=== PATIENT | female | born 1945 | race Caucasian/White ===

== ENCOUNTER 2024-01-24 15:07 | Inpatient (IN) | payer MEDICARE, BC, SELFPAY ==
[2024-01-24] VITALS (11 sets, daily range): BP systolic 86–97; BP diastolic 37–79; PULSE 71–98; RESP 17–24; TEMP 36.6–37.3; O2SAT 92–97; BMI 29.7; BMI 19.3
--- NOTE | 2024-01-24 15:27 | EKG12_ITS ---
Test Reason : SYNCOPE Blood Pressure : / mmHG Vent. Rate : 095 BPM Atrial Rate : 048 BPM P-R Int : 000 ms QRS Dur : 160 ms QT Int : 422 ms P-R-T Axes : 000 002 143 degrees QTc Int : 530 ms Sinus rhythm with PAC's Non-specific intra-ventricular conduction block Minimal voltage criteria for LVH, may be normal variant ( Hernandez product ) Inferior infarct , age undetermined Anterolateral infarct , age undetermined Abnormal ECG Confirmed by WAQAR PAGE, ANYA ([id number]), editor in chief newspaper SLOANE AGUILAR ([id number]) on 01/29/2024 6:48:53 AM Referred By: SAVAGE/SHARON Confirmed By:SHANIA ZAVALETA MD
--- NOTE | 2024-01-24 15:30 | EX.ED.DYSGE1 ---
HPI <RUDY Villalpando - Last Filed: 01/24/24 17:30> History of Present Illness Chief Complaint: Syncope Narrative Narrative: Patient is an 78-year-old female with history of Parkinson disease who is wheelchair-bound, hypertension diabetes currently on any blood thinners who presents to the emergency department after syncopal episode. Per the patient, she has not been feeling well for the last 2 days. She been having intermittent nausea and not eating normally. States today she had an accident where she had a BM on herself, her daughter was there cleaned her up put her on the toilet and then she had a syncopal episode. The daughter was concerned because the patient was not answering questions, was pale and diaphoretic. Patient dates she feels slightly nauseated however no significant pain. PFSH <RUDY Villalpando - Last Filed: 01/24/24 17:30> PFSH Allergy/AdvReac Type Severity Reaction Status Date / Time ampicillin Allergy Hives Verified 01/24/24 15:09 Penicillins Allergy Hives Verified 01/24/24 15:09 Social History Smoking Status: Never smoker ROS <RUDY Villalpando - Last Filed: 01/24/24 17:30> ROS ED ROS Narrative Constitutional: Negative for fever, chills, weight loss. Positive for worsening weakness Eyes: Negative for vision loss, vision change, double vision ENT: Negative for any sore throat, ear pain, congestion Cardiovascular: Negative for any chest pain, tightness, palpitations Respiratory: Negative for any cough, sputum production, hemoptysis, dyspnea, dyspnea on exertion, orthopnea Gastrointestinal: Negative for any abdominal pain, nausea, vomiting, constipation, blood in stool, blood in vomit. Positive for diarrhea : Negative for any urinary frequency, dysuria, retention, blood in urine Muscle skeletal: Negative for any neck pain, back pain Neurological: Negative for any headache. Positive syncope, feeling of dizziness Skin: Negative for any rashes, itching, abrasions, lacerations Psychiatric: Negative for any depression, anxiety, stress, suicidal ideation, homicidal ideation Hematologic: Negative for any excessive bruising, easy bleeding EXAM <RUDY Villalpando Last Filed: 01/24/24 17:30> Physical Exam Narrative Exam Narrative: Vital signs reviewed. Patient's vital signs slightly low at 91/48, patient is alert and oriented however slightly tired appearing. Patient does have a pale appearance HEET: Head normocephalic atraumatic, TMs clear bilaterally. Posterior pharynx is clear, dry mucous membranes. Nares clear bilaterally. Neck: Supple with no lymphadenopathy or tenderness. No signs of meningismus. Cardiac: Regular rate and rhythm no murmurs gallops or rubs, equal peripheral pulses bilaterally. Respiratory: Lungs clear to auscultation bilaterally. No chest tenderness. Abdomen: Soft, nontender, nondistended. No abdominal bruit or pulsatile masses. No hepatosplenomegaly Extremities: No peripheral edema, no signs of gross trauma or deformity. Active full range of motion of all extremities. Lower extremities do appear to be atrophied secondary to not walking. Neuro: Cranial nerves II through XII intact, no focal neurological deficits. Skin: Clean dry and intact with no rash, purpura, petechiae, vesicles or pustules. Backs/flank: No CVA tenderness, no midline spinal tenderness, no deformity. Psych: Normal mood and affect. No SI, HI or acute psychosis. Const Vital Signs: 01/24/24 15:01/24/24 15:01/24/24 15:15 Temperature 99.1 F 99.1 F Temperature Source Oral Oral Pulse Rate 87 Respiratory Rate 18 Respiratory Effort Normal Respiratory Pattern Normal Blood Pressure 91/48 L Blood Pressure Mean 62 Pulse Ox 92 Oxygen Delivery Method Nasal Cannula Oxygen Flow Rate (L/min) 2 01/24/24 15:29 01/24/24 17:08 Temperature Temperature Source Pulse Rate 98 Respiratory Rate Respiratory Effort Respiratory Pattern Blood Pressure 97/51 L Blood Pressure Mean 66 Pulse Ox Oxygen Delivery Method Nasal Cannula Oxygen Flow Rate (L/min) 2 Positive well nourished and well developed General Appearance ED: well developed <Dr. Jose Newell MD - Last Filed: 01/24/24 17:18> Physical Exam Const Vital Signs: 01/24/24 15:01/24/24 15:01/24/24 15:15 Temperature 99.1 F 99.1 F Temperature Source Oral Oral Pulse Rate 87 Respiratory Rate 18 Respiratory Effort Normal Respiratory Pattern Normal Blood Pressure 91/48 L Blood Pressure Mean 62 Pulse Ox 92 Oxygen Delivery Method Nasal Cannula Oxygen Flow Rate (L/min) 2 01/24/24 15:29 01/24/24 17:08 Temperature Temperature Source Pulse Rate 98 Respiratory Rate Respiratory Effort Respiratory Pattern Blood Pressure 97/51 L Blood Pressure Mean 66 Pulse Ox Oxygen Delivery Method Nasal Cannula Oxygen Flow Rate (L/min) 2 MDM <RUDY Villalpando - Last Filed: 01/24/24 17:30> MDM Lab Data Labs: Laboratory Results - last 24 hr 01/24/24 01/24/24 01/24/24 15:36 15:58 16:32 WBC 15.5 H RBC 3.51 L Hgb 12.1 Hct 35.5 L MCV 101.1 H MCH 34.5 H MCHC 34.1 RDW Std Deviation 47.4 H RDW Coeff of Monica 12.8 Plt Count 256 MPV 9.5 Immature Gran % (Auto) 0.500 Neut % (Auto) 95.1 H Lymph % (Auto) 1.5 L [place] % (Auto) 2.5 Eos % (Auto) 0.1 Baso % (Auto) 0.3 Absolute Neuts (auto) 14.7 H Absolute Lymphs (auto) 0.23 L Nucleated RBC % 0 Sodium 131 L Potassium 2.7 L* Chloride 96 L Carbon Dioxide 22.0 Anion Gap 13 BUN 39 H Creatinine 1.59 H Estim Creat Clear Calc 32.90 Est GFR (MDRD) Af Amer 40 L Est GFR (MDRD) Non-Af 33 L BUN/Creatinine Ratio 24.5 H Glucose 242 H Lactic Acid 2.2 H* Calcium 8.7 Troponin I High Sens 83 H Urine Color Yellow Urine Clarity Sl. Cloudy Urine pH 5.0 Ur Specific [place] 1.015 Urine Protein 30 H Urine Glucose (UA) Normal Urine Ketones 15 H Urine Occult Blood 25 H Urine Nitrite Negative Urine Bilirubin 3 H Urine Urobilinogen 4 H Ur Leukocyte Esterase 500 H Urine RBC 0 SEEN Urine WBC 25-50 SEEN Ur Squamous Epith Cells 0-5 SEEN Urine Bacteria 2+ Urine Mucus 0 SEEN Radiography Diagnostic Testing: Clinical Impression(s) from Imaging Studies Chest X-Ray 01/24/24 15:40 IMPRESSION: Fluid in the right fissure. Electronically Signed: Onel Brink MD at 16:20 EDT , EKG EKG shows undetermined rhythm, sinus rhythm,: Attestation: I personally reviewed and interpreted this EKG as follows: Interpretation: Sinus Rhythm Comments: Sinus rhythm, rate 95 bpm, QRS duration 160 ms, no acute ST elevation, no acute infarct noted. Treatment and Re-Evaluation :: Differential diagnosis includes however is not limited to: Vasovagal syncope, arrhythmia, cardiac involvement, dehydration, anemia, electrolyte abnormality, viral illness Patient appears to be in no obvious respiratory distress however patient's vital signs do show some hypotension with initial blood pressure 91/48. Patient is alert and orient x 4 however does appear tired. She is pale appearing. Patient received a full cardiac workup occluding chest x-ray, COVID flu/RSV. Patient be given 2 L of normal saline. EKG will be obtained and within normal limits. All radiologic examinations were read, reviewed by the emergency department attending. From these reads, a plan of care will be put in place. Patient will be reevaluated. Patient will be given a total of 3 L, we will follow the sepsis pathway. Patient's laboratory values showed 15.5 white blood count, so leukocytosis is present, hemoglobin is 12.1 which is stable. Patient's chemistries show some hyponatremia, potassium was 2.7, this was replaced orally and IV. EKG was not showing any signs of ectopy. Patient's creatinine is 1.59, do not have a baseline. Patient's lactic acid is cellulitic and 2.2 with a troponin of 80 3 repeat will be drawn. BNP will be ordered. Chest x-ray showed fluid in the right fissure. Patient's urinalysis was positive for infection with 2+ bacteria 25-50 white blood cells seen, 500 leukocyte esterase, this we sent for culture. Blood cultures x 2 will be ordered, patient will then be placed on IV ceftriaxone. Repeat vital signs show blood pressure of 97/51. Patient is in no obvious distress, patient's vital signs are stable. Spoke with hospitalist, secondary to the sepsis, the patient will be placed in the ICU as a full admission. <Dr. Jose Newell MD - Last Filed: 01/24/24 17:18> [facility] Narrative Medical decision making narrative: I have personally performed a face to face assessment of the patient and have reviewed the MARY Note. I performed a substantive portion of the visit including all aspects of the following. My li findings include: History is 78-year-old female was on the toilet at home had a near syncopal episode. Presents hypotensive. Says she does not felt great the last several days. Decreased oral intake. Denies any headache, chest pain or abdominal pain. Nausea but no vomiting. No diarrhea. Exam is [78-year-old female family in the room. Initial blood pressure 91/48. Temperature 99.1. Pulse ox 92% on 2 L. H EENT exam pupils round reactive light. Dry mucous membranes. Normal speech. No trauma. No droop. Neck nontender. Lungs clear. Heart regular rhythm rate about 85 no murmur. Chest wall and ribs are nontender. Abdomen soft nontender. Moving all 4 extremities. Nontender no deformity. Normal strength. She is awake and alert. Answer questions following commands.] Medical Decision Making [78-year-old near syncopal episode at home with hypotension here. Receiving IV fluids. Zofran for nausea. Appropriate workup. Rule out infectious etiology versus other. She will be admitted to the hospital.] Other additions or changes: [None] History & Record Review Discussion w/independent historian: Patient and Family Additional record(s) reviewed:: No prior records Lab Data Attestation: I reviewed the patient's lab results. Lab results narrative: CBC shows no elevated white count of 15.5. H&H 12.1 and 35. Platelets 256. Electrolytes show sodium 131. Potassium 2.7. Gap 13. BUN and creatinine are 39 and 1.59. We have no old labs available for comparison. Glucose 242. Initial troponins elevated 83. Urinalysis shows white count of 25-50. 2+ bacteria. No nitrites. Culture resent. She will be treated for UTI. Labs: Laboratory Results - last 24 hr 01/24/24 01/24/24 01/24/24 15:36 15:58 16:32 WBC 15.5 H RBC 3.51 L Hgb 12.1 Hct 35.5 L MCV 101.1 H MCH 34.5 H MCHC 34.1 RDW Std Deviation 47.4 H RDW Coeff of Monica 12.8 Plt Count 256 MPV 9.5 Immature Gran % (Auto) 0.500 Neut % (Auto) 95.1 H Lymph % (Auto) 1.5 L [place] % (Auto) 2.5 Eos % (Auto) 0.1 Baso % (Auto) 0.3 Absolute Neuts (auto) 14.7 H Absolute Lymphs (auto) 0.23 L Nucleated RBC % 0 Sodium 131 L Potassium 2.7 L* Chloride 96 L Carbon Dioxide 22.0 Anion Gap 13 BUN 39 H Creatinine 1.59 H Estim Creat Clear Calc 32.90 Est GFR (MDRD) Af Amer 40 L Est GFR (MDRD) Non-Af 33 L BUN/Creatinine Ratio 24.5 H Glucose 242 H Lactic Acid 2.2 H* Calcium 8.7 Troponin I High Sens 83 H Urine Color Yellow Urine Clarity Sl. Cloudy Urine pH 5.0 Ur Specific [place] 1.015 Urine Protein 30 H Urine Glucose (UA) Normal Urine Ketones 15 H Urine Occult Blood 25 H Urine Nitrite Negative Urine Bilirubin 3 H Urine Urobilinogen 4 H Ur Leukocyte Esterase 500 H Urine RBC 0 SEEN Urine WBC 25-50 SEEN Ur Squamous Epith Cells 0-5 SEEN Urine Bacteria 2+ Urine Mucus 0 SEEN Radiography Chest X-Ray - ED: 1 View, Read by ED Physician, Read by Radiologist, Normal, Heart, Mediastinum, Bony Structures, No Acute Disease and - (Fluid in the right fissure.) Diagnostic Testing: Clinical Impression(s) from Imaging Studies Chest X-Ray 01/24/24 15:40 IMPRESSION: Fluid in the right fissure. Electronically Signed: Onel Brink MD at 16:20 EDT Reading Location ID and State: [facility] / [place] , Service support , Chest x-ray, portable, single view shows normal cardiac silhouette. Left-sided brain stimulator. There is fluid in the right fissure but no obvious pneumonia. No effusions. No CHF. Interpreted both by myself and the radiologist. Rhythm Strip Rhythm Strip: Sinus Rhythm Rate: 95 Ectopy: None EKG Initial EKG: Attestation: I personally reviewed and interpreted this EKG as follows: Interpretation: Sinus Rhythm and No Acute Injury Pattern Comments: Normal sinus rhythm rate 95 no acute signs of LA or ischemia. <Dr. Jose Newell MD - Last Filed: 01/24/24 17:18> Critical Care Time Critical Care Time: Yes Critical care time (excluding procedures): 30-74 minutes, Including time spent:, Discussing w/Patient &/or Family/Twill Cutter, Discussing w/Consultants, Arranging Admission or Transfer, Performing Direct Patient Care at Bedside and - (35 minutes) Discharge Plan Dx/Rx/DC Orders Clinical Impression: Near syncope, Acute hypotension, Acute UTI, Sepsis, Acute renal insufficiency, Hypoxia, Acute dehydration, Acute hyperkalemia Disposition Disposition: Acute Care [facility]
--- NOTE | 2024-01-24 15:31 | ED.RN ---
NO OLD EKGS
[2024-01-24] MEDS: 0.9% Normal Saline (1000mL) 1,000 ML 999 ML IV ×3 (15:33→17:45)
--- NOTE | 2024-01-24 15:40 | RAD_ITS ---
STUDY: XR Chest 1 View 01/24/2024 3:38 PM REASON FOR EXAM: Female, 78 years old. chest pain COMPARISON: None TECHNIQUE: XR Chest 1 View FINDINGS: Fluid in the right fissure. There is a left sided batterypack. Normal heart size. Normal mediastinum. Normal mirella. Prominent appearing increased interstitial lung markings. Normal visualized pulmonary arteries. There is atherosclerotic calcification of the aortic arch with tortuosity. There are diffuse degenerative changes of the visualized thoracic spine. There is degenerative osteoarthritis of the bilateral shoulders. There are no acute findings of the upper abdomen. RAD/Chest 1 View (Portable) IMPRESSION: Fluid in the right fissure. Electronically Signed: Onel Brink MD at 16:20 EDT ,
[2024-01-24 15:47] LABS: Absolute Lymphocyte Count 0.23 X10^3/uL (0.83-4.51); Absolute Neutrophil Count 14.7 X10^3/uL (2.0-7.7); Basophil# 0.05 X10^3/uL; Basophil% 0.3 % (0-1); Eosinophil# 0.01 X10^3/uL; Eosinophils% 0.1 % (0-5); Hematocrit 35.5 % (37-47); Hemoglobin 12.1 g/dL (12.0-15.0); Lymphocyte # 0.23 X10^3/ul (0.83-4.51); Lymphocyte % 1.5 % (19-41); Mean Corp Hgb Conc 34.1 g/dL (32-36); Mean Corpuscular Hgb 34.5 pg (27.0-32.0); Mean Corpuscular Volume 101.1 fL (81-99); Mean Platelet Vol. 9.5 fl (6.2-12.0); Monocyte# 0.39 X10^3/uL; Monocyte% 2.5 % (0-10); NRBC Flagged by Analyzer 0 % (0-5); Neutrophil # 14.73 X10^3/uL (2.7-7.7); Neutrophil % 95.1 % (47-70); POSITIVE DIFFERENTIAL YES; Platelet Count 256 K/mm3 (150-450); RBC Distribution Width CV 12.8 % (11.6-14.6); RBC Distribution Width SD 47.4 fl (35.1-43.9); Red Blood Count 3.51 M/mm3 (4.2-5.4); White Blood Count 15.5 K/mm3 (4.4-11.0)
[2024-01-24 16:07] LABS: Mucous, Urine 0 SEEN /hpf (<or=2+); Red Blood Cells-Urine 0 SEEN /hpf (0-5)
[2024-01-24 16:07] LABS: Anion Gap 13 (5-15); BUN 39 mg/dL (7-18); BUN/Creat Ratio 24.5 RATIO (10-20); Calcium,Total 8.7 mg/dL (8.5-10.1); Chloride 96 mmol/L (98-107); Creatinine, Serum 1.59 mg/dL (0.55-1.02); EST Glomerular Filtration Rate 33 mL/min (>60); Est Glom Filt Rate - Afr Amer 40 mL/min (>60); Glucose 242 mg/dL (74-106); Potassium 2.7 mmol/L (3.5-5.1); Sodium Level 131 mmol/L (136-145); Troponin-I HS (w/2H Reflex) 83 pg/mL (3.0-54.0)
[2024-01-24] MEDS: Potassium Chloride Oral Tablet 20 MEQ 40 MEQ PO (16:18)
[2024-01-24 16:29] LABS: Color, Urine Yellow (Yellow); Glucose, Dipstick Normal (Normal); Ketone-Dipstick 15 mg/dl (Negative); Leukocyte Esterase-Dipstick 500 /ul (Negative); Nitrite-Dipstick Negative (Negative); Occult Blood-Urine 25 /ul (Negative); Protein-Dipstick 30 mg/dl (Negative); Specific Gravity, Urine 1.015 (1.002-1.030); Urine Bilirubin Dipstick 3 mg/dL (Negative); Urine Clarity Sl. Cloudy (Clear); Urine Urobilinogen 4 mg/dl (Normal)
[2024-01-24] MEDS: Potassium Chloride 10mEq/100mL 10 MEQ/100 ML IV.SOLN. 100 MEQ IV BOLUS (16:43)
[2024-01-24 16:58] LABS: Bacteria 2+ /hpf (None Seen); Squamous Epithelial Cells - UA 0-5 SEEN /hpf (5-10); White Blood Cells 25-50 SEEN /hpf (0-5)
[2024-01-24 17:11] LABS: Lactic Acid 2.2 mmol/L (0.4-1.9)
--- NOTE | 2024-01-24 17:26 | CT_ITS ---
STUDY: CT Abdomen And Pelvis W/O Contrast Injection 01/24/2024 7:07 PM REASON FOR EXAM: Female, 78 years old. Abdominal pain urosepsis Individualized dose optimization techniques were used for this CT. COMPARISON: None. TECHNIQUE: CT Abdomen And Pelvis W/O Contrast Injection FINDINGS: There are atherosclerotic calcifications of visualized coronary arteries. Lower lobe atelectasis. There is decreased attenuation of the liver consistent with steatosis. Normal gallbladder and extrahepatic biliary system. Normal spleen. Normal pancreas. Normal bilateral adrenal glands. No acute findings of the right kidney. No acute findings of the left kidney. Normal visualized stomach. Normal small intestine. Normal colon. The appendix is visualized and appears normal. There are calcifications of the abdominal aorta. This is consistent for atherosclerotic disease. There is NO abdominal aortic aneurysm. Vascular workup can be obtained based on clinical correlation. Normal inferior vena cava. Subcentimeter mesenteric lymph nodes. Normal urinary bladder. The uterus is lobulated in contour. There are multiple partially calcified masses in the uterus. This is consistent for a fibroid/ myomatous uterus. There is an umbilical hernia containing fat. There are diffuse degenerative changes of the visualized lumbar spine. There is bilateral neural foraminal stenosis at L4-5 and L5-S1. CT/Abdomen/Pelvis without Cont IMPRESSION: (NOT LISTED IN ORDER OF SIGNIFICANCE) Fatty liver. Fibroid uterus. Other findings as above. Electronically Signed: Onel Brink MD at 19:10 EDT ,
[2024-01-24] MEDS: Ceftriaxone 1 GM/50 ML BAG IV (17:30)
--- NOTE | 2024-01-24 17:31 | PCM.HP.STD ---
HPI - General General Date of Admission: 01/24/24 Date of Service: 01/24/24 Chief Complaint: syncope HPI Narrative MARIELA BIRD, is a 78 F who presented to the emergency department at [facility] on 01/24/2024 after suffering from a syncopal episode. She has a history of Parkinson's disease and is wheelchair-bound at baseline due to this. She has a history of deep brain stimulator for this. Evidently, she had not been feeling well for the last 2 days with intermittent nausea and decreased p.o. intake compared to her normal baseline. She evidently had an accident today at which time she had a bowel movement on herself and the daughter was there helping her get cleaned up and placing her on the toilet at which time she had a syncopal episode. The daughter was concerned because the patient was not answering questions, appeared pale and diaphoretic. Given this they brought her to the emergency department. She has never been here before we have no data to compare for baseline lab. Upon presentation she was alert and oriented all of but sleepy initially however this improved during her stay in the emergency department and she was feeling slightly nauseated but denied pain. Vital signs on presentation showed a temperature of 99.1, heart rate was 87, blood pressure was 91/48, respiratory rate was 18 and oxygen saturation was 92% on 2 L nasal cannula. The patient takes antihypertensives at baseline and is not oxygen dependent. CBC showed a significant leukocytosis with a white count of 15.5 and a left shift with a 95.1% neutrophilia. Chemistry panel revealed hyponatremia with a sodium of 131, potassium of 2.7. BUN was 39 with a serum creatinine of 1.59 (baseline unknown). Lactic acid was 2.2. Her initial troponin was 83, CK was 125 and a BNP was mildly elevated at 138.8. Her UA was suggestive of infection as she had occult blood, leuk esterase, white cells and 2+ bacteria. Chest x-ray showed mild amount of fluid in the right fissure but was otherwise unremarkable. EKG shows intermittent ectopy with prolonged QTc but no ST-T wave changes concerning for acute ischemia. In the emergency department she was treated with aggressive IV fluids at 30 cc/kg of body weight and started on antibiotics. The patient denied frequent urinary tract infections previously and states she think she is only had a read 2 in her lifetime. [facility] Medical History (Updated 01/24/24 @ 18:[address] Edith Cornelius DO) Inability to walk Wheelchair dependent Depression Diabetes mellitus, type 2 HTN (hypertension) Parkinson disease Home Medications ?Medication ?Instructions ?Recorded ?Last Taken ?Type carbidopa 25 mg-levodopa 100 mg See Rx Instructions PO .COMPLEX 01/24/24 01/24/24 History tablet SHAKINESS carbidopa ER 25 mg-levodopa 100 mg 1 tab PO TID SHAKINESS 01/24/24 01/24/24 History tablet,extended release carvedilol 6.25 mg tablet 6.25 mg PO BID BLOOD PRESSURE 01/24/24 01/24/24 History glipizide 5 mg tablet 2.5 mg PO DAILY BLOOD SUGAR 01/24/24 01/24/24 History hydrochlorothiazide 25 mg tablet 25 mg PO DAILY FLUID RETENTION 01/24/24 01/24/24 History metformin 500 mg tablet,extended 1,000 mg PO DAILY BLOOD SUGAR 01/24/24 01/24/24 History release 24 hr mirtazapine 15 mg tablet 15 mg PO QHS MOOD 01/24/24 01/23/24 History sertraline 100 mg tablet 100 mg PO DAILY MOOD 01/24/24 01/24/24 History Allergy/AdvReac Type Severity Reaction Status Date / Time ampicillin Allergy Hives Verified 01/24/24 15:09 Penicillins Allergy Hives Verified 01/24/24 15:09 Family History (Updated 01/24/24 @ 19:[address] Edith Cornelius DO) Other Diabetes Hypertension Surgical History (Updated 01/24/24 @ 18:[address] Edtih Cornelius DO) H/O shoulder surgery S/P deep brain stimulator placement Social History (Updated 01/24/24 @ 19:[address] Edith Cornelius DO) Smoking Status: Never smoker alcohol intake: never substance use type: does not use ROS Constitutional Constitutional: Reports fatigue, malaise and weakness; Denies anorexia, change in weight, chills, fever(s), night sweats or other Eyes Eyes: Denies blurry vision, change in eye color, change in vision, discharge from eye(s), double vision, erythema, eye pain, loss of vision or other ENT HEENT: Denies abnormal hearing, dysphagia, ear pain, epistaxis, headache(s), hearing loss, nasal congestion, nasal discharge, post nasal drip, sinus pressure, sore throat or other Cardiovascular Cardiovascular: Denies chest pain, claudication, dyspnea on exertion, edema, lightheadedness, orthopnea, palpitations, paroxysmal nocturnal dyspnea, rapid heart rate, syncope or other Respiratory/Chest Respiratory/Chest: Reports dyspnea and shortness of breath at rest; Denies cough, excessive phlegm production, hemoptysis, productive cough, wheezing or other Gastrointestinal Gastrointestinal: Reports nausea; Denies abdominal pain, coffee ground emesis, constipation, diarrhea, dyspepsia, hematemesis, hematochezia, loose stools, melena, vomiting or other Genitourinary Genitourinary: Reports urinary frequency and urinary incontinence; Denies burning urination, difficulty urinating, dysuria, hematuria, nocturia, urinary hesitancy, urinary urgency or other Musculoskeletal Musculoskeletal: Reports other Neurologic Neurologic: Reports tremor(s) and other Details: Inability ambulate secondary to Parkinson's disease Psychiatric Psychiatric: Reports depression; Denies anxiety, homicidal ideation, suicidal ideation or other Endocrine Endocrinology: Denies change in body appearance, cold intolerance, excessive sweating, heat intolerance, polydipsia, polyuria or other Hematologic/Lymphatic Hematologic/Lymphatic: Denies anemia, easy bleeding, easy bruising, lymphadenopathy or other Allergic/Immunologic Allergic/Immunologic: Denies rhinitis, hives, eczemia, asthma or other Vital Signs Vital Signs Vital Signs: 01/24/24 15:09 01/24/24 15:09 01/24/24 15:15 Temperature 99.1 F 99.1 F Temperature Source Oral Oral Pulse Rate 87 Respiratory Rate 18 Respiratory Effort Normal Respiratory Pattern Normal Blood Pressure 91/48 L Blood Pressure Mean 62 Pulse Ox 92 Oxygen Delivery Method Nasal Cannula Oxygen Flow Rate (L/min) 2 01/24/24 15:29 01/24/24 17:08 Temperature Temperature Source Pulse Rate 98 Respiratory Rate Respiratory Effort Respiratory Pattern Blood Pressure 97/51 L Blood Pressure Mean 66 Pulse Ox Oxygen Delivery Method Nasal Cannula Oxygen Flow Rate (L/min) 2 Weight Weight: 88.8 kg Body Mass Index (BMI) 29.7 Physical Exam Const oriented x3, no apparent distress and well nourished; Negative for average body habitus or healthy appearing Constitutional Narrative: Elderly, white female, sitting up in bed, covered in multiple blankets, son-in-law at bedside and daughter comes in during my evaluation, appears ill but currently comfortable General Appearance: cooperative HEENT normocephalic, head/scalp atraumatic, hearing grossly normal bilaterally and moist oral mucous membranes HEENT Narrative: Mallampati 2, no thrush Eyes PERRL, EOMs intact bilaterally and conjunctivae normal Eyes Narrative: No scleral icterus Neck no lymphadenopathy and supple Neck Narrative: Trachea midline, no thyroid enlargement Resp normal respiratory effort, no retractions, no use of accessory muscles and clear to auscultation bilaterally Resp Narrative: Decreased at bases bilaterally but no adventitious sounds noted Auscultation: Negative for rales, rhonchi or wheezes Cardio regular rate, regular rhythm, S1 normal heart sound, S2 normal heart sound, no murmurs, no rub, no gallops and no clicks Cardio Narrative: Intermittent ectopy GI normal to inspection, nondistended, normoactive bowel sounds, soft to palpation and non-tender Extremity Extremity Narrative: Lower extremity flaccidity noted from Parkinson's and decreased use, chronic edema related to disuse but no cyanosis or clubbing Neuro oriented x3, CN's II-XII intact bilaterally, moves all extremities and no focal motor deficits Speech: speech normal Psych affect normal Psych Narrative: Very pleasant, interacts appropriately Results Lab / Micro Data 01/24/24 15:36 01/24/24 15:36 Labs: Laboratory Results - last 24 hr 01/24/24 15:36: WBC 15.5 H, RBC 3.51 L, Hgb 12.1, Hct 35.5 L, MCV 101.1 H, MCH 34.5 H, MCHC 34.1, RDW Std Deviation 47.4 H, RDW Coeff of Monica 12.8, Plt Count 256, MPV 9.5, Immature Gran % (Auto) 0.500, Neut % (Auto) 95.1 H, Lymph % (Auto) 1.5 L, [place] % (Auto) 2.5, Eos % (Auto) 0.1, Baso % (Auto) 0.3, Absolute Neuts (auto) 14.7 H, Absolute Lymphs (auto) 0.23 L, Nucleated RBC % 0, Sodium 131 L, Potassium 2.7 L*, Chloride 96 L, Carbon Dioxide 22.0, Anion Gap 13, BUN 39 H, Creatinine 1.59 H, Estim Creat Clear Calc 32.90, Est GFR (MDRD) Af Amer 40 L, Est GFR (MDRD) Non-Af 33 L, BUN/Creatinine Ratio 24.5 H, Glucose 242 H, Calcium 8.7, Troponin I High Sens 83 H 01/24/24 15:58: Urine Color Yellow, Urine Clarity Sl. Cloudy, Urine pH 5.0, Ur Specific [place] 1.015, Urine Protein 30 H, Urine Glucose (UA) Normal, Urine Ketones 15 H, Urine Occult Blood 25 H, Urine Nitrite Negative, Urine Bilirubin 3 H, Urine Urobilinogen 4 H, Ur Leukocyte Esterase 500 H, Urine RBC 0 SEEN, Urine WBC 25-50 SEEN, Ur Squamous Epith Cells 0-5 SEEN, Urine Bacteria 2+, Urine Mucus 0 SEEN 01/24/24 16:32: Lactic Acid 2.2 H* Rhythm Strip Rhythm Strip: Sinus Rhythm Rate: 95 Ectopy: None Imaging Radiology Impression Chest X-Ray 01/24/24 15:40 IMPRESSION: Fluid in the right fissure. Electronically Signed: Onel Brink MD at 16:20 EDT Reading Location ID and State: [facility] / [place] , Service support , Assessment & Plan Assessment/Plan (1) Hypoxia: (2) Elevated serum creatinine: (3) Sepsis: (4) Abnormal urinalysis: (5) Near syncope: (6) Acute hypotension: (7) Hypokalemia: (8) Leukocytosis: (9) Hyponatremia: (10) Lactic acidosis: (11) Elevated troponin: PLAN: Plan Sepsis secondary to suspected urinary tract source -Met criteria for sep 1 and sep 3 guidelines -UA is suggestive of infection -Blood and urine cultures are pending -COVID-19 is negative and chest x-ray does not suggest pneumonia -Patient without history of recurrent UTIs so we will utilize ceftriaxone -Patient did receive 30 cc/kg body weight -Awaiting response as this is still in progress to see if patient will need pressors -Imaging pending to assess for obstruction or stone that will require surgery Lactic acidosis -Secondary to the above -Repeat per protocol Elevated troponin -Cycle cardiac enzymes -Highly suspect subendocardial ischemia related to sepsis -Check echocardiogram -EKG without any signs of acute infarction and patient chest pain-free Hypokalemia -Potassium is 2.7 -Was given 40 mill equivalents emergency department will give another 60 mill equivalents on the floor and repeat in a.m. -Check a.m. magnesium and phosphorus level Elevated serum creatinine -Baseline is unknown -Serum creatinine on presentation was 1.59 -Highly suspect patient has CATIE on presentation but unable to say for sure without baseline being known -Avoid nephrotoxin and hold home antihypertensives due to hypotension -Avoid nephrotoxins as able -Repeat lab in a.m. Hyponatremia -IVF--> suspect hypovolemia -mild -IV fluids were given to treat sepsis -Repeat lab in a.m. -Hold HCTZ Hypoxia -Currently requiring 2 L nasal cannula -May be related to atelectasis -Incentive spirometry -COVID/flu/RSV is negative -Monitor clinically especially with large volume resuscitation Parkinson's disease -Patient with deep brain stimulator -Currently wheelchair-bound because of her movement disorder -Continue home Sinemet DM-2 -Hold home glipizide and metformin -check hemoglobin A1c -SSI and Accu-Cheks as ordered -Carb controlled diet Essential hypertension -Hold home carvedilol -Hold home hydrochlorothiazide Depression -Continue home mirtazapine -Continue home sertraline DVT prophylaxis -Subcu heparin 3 times daily CODE STATUS -Full code as verified prior to admission with family at bedside Critical care time greater than 36 minutes without procedures Sepsis Attestation Sepsis Alert: Yes Sepsis Attestation: Agree w/Sepsis Date exam was performed: 01/24/24 Time exam was performed: 05:25 Possible Source of Sepsis: Genitourinary Sepsis Organ Dysfunction Criteria Present: SBP < 90 mmHg or MAP < 65 mmHg and Lactic Acid > 2 mmol/L Fluid Resuscitation Fluid resuscitation indicated?: Yes Fluid Resuscitation ordered: 30 ml/kg fluid bolus ordered Amount of fluid ordered: 3,000 Sepsis Note Date exam was performed: 01/24/24 Time exam was performed: 19:08 Response to fluids: Fluid responsive hypotension Charges/Coding Procedures Hospitalists Procedures: 48728 Critical Care 1st Hr
--- NOTE | 2024-01-24 17:34 | ECHOD_ITS ---
Reason For Study: ELEVATED TROP Procedure This was a 2D Doppler, Color Flow transthoracic echocardiogram. Exam performed portable in ICU/CCU. Left Ventricle Normal LV size. The estimated ejection fraction is 65 %. Unable to assess diastolic dysfunction. No regional wall motion abnormalities noted. Right Ventricle Normal RV size. Normal systolic function. Atria The left atrium is mildly enlarged. Normal right atrium. No doppler evidence for ASD. Mitral Valve There is no mitral valve stenosis. No mitral valve insufficiency. Tricuspid Valve There is no tricuspid stenosis. Trivial tricuspid valve insufficiency. Pulmonary artery systolic pressure is 40-45 mmHg. Aortic Valve Aortic sclerosis, no stenosis. There is no aortic stenosis. No aortic valve insufficiency. Pulmonic Valve There is no pulmonic valvular stenosis. No pulmonic valve insufficiency. Great Vessels Normal aortic root. Pericardium/Pleural No pericardial effusion. MMode/2D Measurements & Calculations LVIDd: 4.6 cm IVSd: 0.79 cm LAV(MOD-sp4): 69.0 ml LVIDs: 2.8 cm LVPWd: 0.99 cm FS: 38.5 % LVAd ap4: 21.7 cm2 SV(MOD-sp4): 33.1 ml SV(sp4-el): 33.2 ml LVLd ap4: 7.5 cm EDV(MOD-sp4): 53.2 ml EDV(sp4-el): 53.1 ml LVAs ap4: 12.2 cm2 LVLs ap4: 6.4 cm ESV(MOD-sp4): 20.0 ml ESV(sp4-el): 19.9 ml EF(MOD-sp4): 62.3 % EF(sp4-el): 62.6 % LA A4 area: 23.8 cm2 LA dimension(2D): 4.3 cm RA A4 area: 10.7 cm2 Doppler Measurements & Calculations MV E max venkat: 74.9 cm/sec Ao V2 max: 139.0 cm/sec LV V1 max: 110.6 cm/sec Ao max P.0 mmHg LV V1 max P.9 mmHg Ao V2 mean: 100.5 cm/sec LV V1 mean P.1 mmHg Ao mean P.6 mmHg LV V1 mean: 82.0 cm/sec Ao V2 VTI: 25.6 cm LV V1 VTI: 17.7 cm AV (velocity ratio): 0.69 PA V2 max: 80.4 cm/sec TR max venkat: 307.8 cm/sec PA V2 mean: 49.2 cm/sec TR max P.9 mmHg ECHO/Echo Complete Interpretation Summary The estimated ejection fraction is 65 %. Unable to assess diastolic dysfunction. The left atrium is mildly enlarged. Ordering Physician: Edith Cornelius Referring Physician: ANNALEE PERDOMO Performed By: Emelina Martin RCS
[2024-01-24 17:42] LABS: Reflex Troponin-HS? (from REC) Y
[2024-01-24 18:02] LABS: CPK Total, Creatine Kinase 125 U/L (26-192)
[2024-01-24 18:06] LABS: BNP,B-Type NATRIURETIC PEPTIDE 138.8 pg/mL (0-100)
[2024-01-24 18:29] LABS: Troponin-I HS 86 pg/mL (3.0-54.0)
[2024-01-24 20:34] LABS: Reflex Lactate? Y
[2024-01-24 20:36] LABS: Troponin-I HS 75 pg/mL (3.0-54.0)
[2024-01-24] MEDS: Norepinephrine 8 MG in 0.9% Normal Saline (250mL Bag) 242 ML 9.4 MG CONT INF (20:49)
[2024-01-24] MEDS: CARBIDOPA/LEVODOPA 1 EACH TABLET.ER PO (20:52)
[2024-01-24] MEDS: Heparin Injection (Vial) 5,000 UNIT/ML VIAL 5000 UNIT SC (20:53)
[2024-01-24] MEDS: Acetaminophen 500 MG Tablet 1000 MG PO (20:54)
[2024-01-24] MEDS: Carbidopa/Levodopa 25/100 Tablet PO (20:54)
[2024-01-24] MEDS: Mirtazapine 15 MG Tablet PO (21:11)
[2024-01-24 21:48] LABS: M R Staph aureus DNA By PCR Negative (Negative); Specimen Processing Control PASS
[2024-01-24 21:49] LABS: Probe Check PASS
[2024-01-24] MEDS: Potassium Chloride Oral Tablet 20 MEQ 60 MEQ PO (21:54)
[2024-01-24 22:29] LABS: Lactic Acid 1.4 mmol/L (0.4-1.9)
[2024-01-25] VITALS (34 sets, daily range): BP systolic 88–154; BP diastolic 35–86; PULSE 69–118; RESP 14–31; TEMP 36.6–36.8; O2SAT 89–96; BMI 29.5
[2024-01-25 04:06] LABS: Absolute Lymphocyte Count 0.49 X10^3/uL (0.83-4.51); Absolute Neutrophil Count 12.3 X10^3/uL (2.0-7.7); Basophil# 0.03 X10^3/uL; Basophil% 0.2 % (0-1); Eosinophil# 0.03 X10^3/uL; Eosinophils% 0.2 % (0-5); Hematocrit 33.9 % (37-47); Hemoglobin 11.3 g/dL (12.0-15.0); Lymphocyte # 0.49 X10^3/ul (0.83-4.51); Lymphocyte % 3.7 % (19-41); Mean Corp Hgb Conc 33.3 g/dL (32-36); Mean Corpuscular Hgb 34.2 pg (27.0-32.0); Mean Corpuscular Volume 102.7 fL (81-99); Mean Platelet Vol. 9.7 fl (6.2-12.0); Monocyte# 0.52 X10^3/uL; Monocyte% 3.9 % (0-10); NRBC Flagged by Analyzer 0 % (0-5); Neutrophil # 12.25 X10^3/uL (2.7-7.7); Neutrophil % 91.5 % (47-70); POSITIVE DIFFERENTIAL YES; Platelet Count 250 K/mm3 (150-450); RBC Distribution Width CV 12.8 % (11.6-14.6); White Blood Count 13.4 K/mm3 (4.4-11.0)
[2024-01-25 04:17] LABS: Bedside Glucose 161 mg/dL (74-106)
[2024-01-25 04:35] LABS: ALB/GLOB Ratio 0.7 RATIO (0.9-2.4); AST(SGOT) 42 U/L (15-37); Alanine Aminotransfer ALT/SGPT 10 U/L (13-56); Albumin, Serum 2.6 g/dL (3.2-5.0); Alkaline Phosphatase 150 U/L (45-117); Anion Gap 6 (5-15); BUN 28 mg/dL (7-18); BUN/Creat Ratio 38.6 RATIO (10-20); Calcium,Total 8.3 mg/dL (8.5-10.1); Chloride 108 mmol/L (98-107); Creatinine, Serum 0.72 mg/dL (0.55-1.02); EST Glomerular Filtration Rate 82 mL/min (>60); Est Glom Filt Rate - Afr Amer 99 mL/min (>60); Estimated Creatinine Clearance 50.91 ml/min; Globulin 3.8 g/dL (2.2-4.2); Glucose 168 mg/dL (74-106); Magnesium 1.4 mg/dL (1.6-2.6); Phosphorus 2.5 mg/dL (2.5-4.9); Protein, Total 6.4 g/dL (6.4-8.2); Sodium Level 140 mmol/L (136-145)
[2024-01-25] MEDS: Carbidopa/Levodopa 25/100 Tablet PO ×7 (06:03→20:30)
[2024-01-25] MEDS: CARBIDOPA/LEVODOPA 1 EACH TABLET.ER PO ×3 (06:03→21:45)
[2024-01-25] MEDS: Acetaminophen 500 MG Tablet 1000 MG PO ×3 (06:05→21:47)
[2024-01-25] MEDS: Heparin Injection (Vial) 5,000 UNIT/ML VIAL 5000 UNIT SC ×3 (06:06→21:43)
[2024-01-25] MEDS: Insulin Lispro 100 UNIT/ML INSULN.PEN SC ×3 (06:06→16:24)
--- NOTE | 2024-01-25 08:12 | PCM.PN.HOSP ---
Reason for Visit Reason for Visit: Diagnoses Sepsis, unspecified organism (01/24/24) Elevated white blood cell count, unspecified (01/24/24) Hypo-osmolality and hyponatremia (01/24/24) Acidosis, unspecified (01/24/24) Hypokalemia (01/24/24) Hypotension, unspecified (01/24/24) Hypoxemia (01/24/24) Syncope and collapse (01/24/24) Other specified abnormal findings of blood chemistry (01/24/24) Unspecified abnormal findings in urine (01/24/24) Subjective Subjective Feeling a little bit better this morning but overall weak and tired. No abdominal pain, off of Levophed since around 7 AM Objective Data Objective Data Vital Signs: Vital Signs Temp Pulse Resp BP Pulse Ox O2 Del Method O2 Flow Rate 98 F 90 16 98/49 L 94 Nasal Cannula 2 01/25/24 04:00 01/25/24 07:00 01/25/24 07:00 01/25/24 07:30 01/25/24 07:00 01/25/24 07:00 01/25/24 07:00 Oxygen Flow Rate (L/min) 2 Oxygen Delivery Method Nasal Cannula Weight: 87.997 kg Body Mass Index (BMI) 29.5 Intake & Output: Intake and Output for Last 24 Hours 01/23/24 01/24/24 01/25/24 23:59 23:59 23:59 Intake Total 3270.52 / 3631.82 783.03 / 783.03 Output Total 450 / 800 1125 / 1125 Balance 2820.52 / 2831.82 -341.97 / -341.97 Lab / Micro Data 01/25/24 03:55 01/25/24 03:55 Labs: Laboratory Results - last 24 hr 01/24/24 13:35: B-Natriuretic Peptide 138.8 H 01/24/24 15:36: WBC 15.5 H, RBC 3.51 L, Hgb 12.1, Hct 35.5 L, MCV 101.1 H, MCH 34.5 H, MCHC 34.1, RDW Std Deviation 47.4 H, RDW Coeff of [place] 12.8, Plt Count 256, MPV 9.5, Immature Gran % (Auto) 0.500, Neut % (Auto) 95.1 H, Lymph % (Auto) 1.5 L, [place] % (Auto) 2.5, Eos % (Auto) 0.1, Baso % (Auto) 0.3, Absolute Neuts (auto) 14.7 H, Absolute Lymphs (auto) 0.23 L, Nucleated RBC % 0, Sodium 131 L, Potassium 2.7 L*, Chloride 96 L, Carbon Dioxide 22.0, Anion Gap 13, BUN 39 H, Creatinine 1.59 H, Estim Creat Clear Calc 32.90, Est GFR (MDRD) Af Amer 40 L, Est GFR (MDRD) Non-Af 33 L, BUN/Creatinine Ratio 24.5 H, Glucose 242 H, Calcium 8.7, Total Creatine Kinase 125, Troponin I High Sens 83 H 01/24/24 15:58: Urine Color Yellow, Urine Clarity Sl. Cloudy, Urine pH 5.0, Ur Specific [place] 1.015, Urine Protein 30 H, Urine Glucose (UA) Normal, Urine Ketones 15 H, Urine Occult Blood 25 H, Urine Nitrite Negative, Urine Bilirubin 3 H, Urine Urobilinogen 4 H, Ur Leukocyte Esterase 500 H, Urine RBC 0 SEEN, Urine WBC 25-50 SEEN, Ur Squamous Epith Cells 0-5 SEEN, Urine Bacteria 2+, Urine Mucus 0 SEEN 01/24/24 16:32: Lactic Acid 2.2 H* 01/24/24 18:07: Troponin I High Sens 86 H 01/24/24 20:10: Troponin I High Sens 75 H, MRSA (PCR) Negative 01/24/24 21:45: Lactic Acid 1.4 01/25/24 03:55: WBC 13.4 H, RBC 3.30 L, Hgb 11.3 L, Hct 33.9 L, MCV 102.7 H, MCH 34.2 H, MCHC 33.3, RDW Std Deviation 48.0 H, RDW Coeff of [place] 12.8, Plt Count 250, MPV 9.7, Immature Gran % (Auto) 0.500, Neut % (Auto) 91.5 H, Lymph % (Auto) 3.7 L, [place] % (Auto) 3.9, Eos % (Auto) 0.2, Baso % (Auto) 0.2, Absolute Neuts (auto) 12.3 H, Absolute Lymphs (auto) 0.49 L, Nucleated RBC % 0, Sodium 140, Potassium 3.0 L, Chloride 108 H, Carbon Dioxide 26.0, Anion Gap 6, BUN 28 H, Creatinine 0.72, Estim Creat Clear Calc 50.91, Est GFR (MDRD) Af Amer 99, Est GFR (MDRD) Non-Af 82, BUN/Creatinine Ratio 38.6 H, Glucose 168 H, Calcium 8.3 L, Phosphorus 2.5, Magnesium 1.4 L, Total Bilirubin 0.60, AST 42 H, ALT 10 L, Alkaline Phosphatase 150 H, Total Protein 6.4, Albumin 2.6 L, Globulin 3.8, Albumin/Globulin Ratio 0.7 L, TSH 2.840 01/25/24 04:00: POC Glucose 161 H Micro: Microbiology 01/24/24 15:36 Mucosa - Nose SARS-CoV-2, Influenza & RSV (PCR) - Final Radiography Diagnostic Testing: Radiology Impression Chest X-Ray 01/24/24 15:40 IMPRESSION: Fluid in the right fissure. Electronically Signed: Onel Brink MD at 16:20 EDT , Abdomen/Pelvis CT 01/24/24 17:26 IMPRESSION: (NOT LISTED IN ORDER OF SIGNIFICANCE) Fatty liver. Fibroid uterus. Other findings as above. Electronically Signed: Onel Brink MD at 19:10 EDT , Rhythm Strip Rhythm Strip: Sinus Rhythm Rate: 95 Ectopy: None Physical Exam Narrative General: Alert, oriented HEENT: Atraumatic, normocephalic Eyes: Anicteric, normal conjunctiva, extraocular movements grossly intact Neck: Supple Respiratory: Clear to auscultation bilaterally, normal respiratory effort Cardiovascular: Regular rate and rhythm GI: Soft, nontender, nondistended Extremities: No edema Musculoskeletal: Moving all extremities in bed Neuro: No overt focal neurological deficits in bed, gen weak, hx parkinsons Skin: No rashes appreciated Psych: Cooperative Assessment & Plan Assessment/Plan (1) Hypoxia: (2) Elevated serum creatinine: (3) Sepsis: (4) Abnormal urinalysis: (5) Near syncope: (6) Acute hypotension: (7) Hypokalemia: (8) Hyponatremia: (9) Elevated troponin: PLAN: Plan # Septic shock suspect 2/2 UTI -Patient met sep1 and sep3 criteria -UA suggestive of UTI and CT abdomen pelvis unrevealing for source and chest x-ray with no pneumonia -Blood and urine cultures pending -Patient on Rocephin due to presumed urinary tract infection source -Patient in ICU with top and seat cover fitter consultation -BP did not respond to initial fluids and patient required vasopressor initiation, has been off for several hours #Elevated troponin -83-> 86-> 75 -Suspect all demand secondary to type I #Elevated Cr, suspect CATIE -No known baseline creatinine however 1.52 on arrival and decreased to 0.72 -IV fluids #Hyponatremia -No known baseline but 131 on presentation, suspect due to dehydration as improved to 140 with fluids #Hypokalemia/hypomagnesemia -2.7 on presentation, 3.0 this morning, further replacement ordered -Magnesium 1.4, this is also been replaced Chronic medical problems: # Hypertension -BP soft and patient presented with sepsis -Holding home carvedilol and hydrochlorothiazide # Parkinson's disease -Patient with DBS -Wheelchair-bound -Continue home Sinemet #Type 2 diabetes mellitus -Glucose checks and sliding scale insulin hold home oral hypoglycemic agents # Depression -Continuing patient's home mirtazapine and sertraline #DVT ppx: Heparin subcu Racquel Hicks MD Time spent in the patient's overall evaluation,decision-making process, review of diagnostic data, adjustment of management, discussion with other providers, nursing nursing and ancillary staff involved in patient's care documentation, 38 minutes Charges/Coding Visit Charges Inpatient E&M: 48999 Subs Hosp L2
[2024-01-25] MEDS: 0.9% Normal Saline (250mL Bag) 250 ML 15 ML IV (08:40)
--- NOTE | 2024-01-25 08:43 | EX.PCM.CONCC ---
Assessment & Plan Assessment/Plan (1) Septic shock: PLAN: Plan RECOMMENDATIONS: 1. Continue antimicrobials pending finalized culture results. 2. Physical therapy to evaluate the patient. 3. Continue baseline Parkinson's regimen. 4. Dietary advancement as tolerated. 5. Electrolyte repletion as needed. 6. If the patient remains hemodynamically stable throughout the morning, she can be transferred out of the medical intensive care unit. IMPRESSIONS: 1. Septic shock The patient presented to the hospital with clinical signs and symptoms concerning for underlying urinary tract source of infection with associated fluid refractory hypotension, which necessitated vasopressor support. The patient has improved clinically and has been weaned from Levophed as of this morning. She will be continued on empiric antimicrobials, pending finalized culture results. CT abdomen/pelvis demonstrated no acute concerning findings. If the patient remains hemodynamically stable over the course of the morning, she can be transferred out of the medical intensive care unit. 2. Troponin elevation Likely secondary to demand ischemia in the setting of #1. Surface echocardiogram is pending. 3. Parkinson's disease/diabetes mellitus/hypertension/depression Complicates care, management, recovery and prognosis. Continue to hold home antihypertensives. Physical therapy to evaluate the patient. This note was generated with [employer] dictation software. It may contain incorrect words, spelling, and punctuation that were not noted in checking the note before signing. HPI Consult Data Date of Consult: 01/25/24 HPI Narrative Reason for Consultation: Sepsis HPI Narrative: The patient is an 78-year-old female, with a history as outlined below, who presented to the emergency department via EMS on January 23 after experiencing a syncopal event while using the bathroom. The patient did report a history of intermittent nausea and decreased p.o. intake prior to her hospitalization. The patient is primarily wheelchair-bound, but resides at home by herself with the assistance of home health aides. She has a known history of Parkinson's disease and underwent deep brain stimulator placement for this several years ago. On presentation to the emergency department, the patient was noted to be afebrile with borderline hemodynamics. Initial laboratory evaluation revealed a white blood cell count of 15,000. Chemistry profile was notable for a sodium of 131, potassium of 2.7, chloride of 96, BUN of 39 and creatinine of 1.59. Lactate was elevated at 2.2. Urine analysis was positive for leukocyte esterase and 2+ urine bacteria. MRSA screen was negative. CT abdomen/pelvis demonstrated no significant acute findings. Chest x-ray demonstrated no focal infiltrate or consolidation. The patient received supplemental IV fluid hydration and was placed on antimicrobials. The patient was ultimately transferred to the medical intensive care unit, where she went on to develop fluid refractory hypotension, which necessitated vasopressor support. As of this morning, the patient was able to be weaned off of Levophed at approximately 6:30 AM. She remains hemodynamically stable at the present time. She denies any abdominal pain, nausea or vomiting. [facility] Medical History (Updated 01/25/24 @ 08:[address] López Medeiros, ) Inability to walk Wheelchair dependent Depression Diabetes mellitus, type 2 HTN (hypertension) Parkinson disease Home Medications ?Medication ?Instructions ?Recorded ?Last Taken ?Type carbidopa 25 mg-levodopa 100 mg See Rx Instructions PO .COMPLEX 01/24/24 01/24/24 History tablet SHAKINESS carbidopa ER 25 mg-levodopa 100 mg 1 tab PO TID SHAKINESS 01/24/24 01/24/24 History tablet,extended release carvedilol 6.25 mg tablet 6.25 mg PO BID BLOOD PRESSURE 01/24/24 01/24/24 History glipizide 5 mg tablet 2.5 mg PO DAILY BLOOD SUGAR 01/24/24 01/24/24 History hydrochlorothiazide 25 mg tablet 25 mg PO DAILY FLUID RETENTION 01/24/24 01/24/24 History metformin 500 mg tablet,extended 1,000 mg PO DAILY BLOOD SUGAR 01/24/24 01/24/24 History release 24 hr mirtazapine 15 mg tablet 15 mg PO QHS MOOD 01/24/24 01/23/24 History sertraline 100 mg tablet 100 mg PO DAILY MOOD 01/24/24 01/24/24 History Allergy/AdvReac Type Severity Reaction Status Date / Time ampicillin Allergy Hives Verified 01/24/24 15:09 Penicillins Allergy Hives Verified 01/24/24 15:09 Family History (Updated 01/24/24 @ 19:[address] Edith Cornelius DO) Other Diabetes Hypertension Surgical History (Updated 01/24/24 @ 18:[address] Edith Cornelius DO) H/O shoulder surgery S/P deep brain stimulator placement Social History (Updated 01/24/24 @ 19:[address] Edith Cornelius, DO) Smoking Status: Never smoker alcohol intake: never substance use type: does not use ROS ROS Narrative 10 systems were reviewed with pertinent positives as noted in the HPI above. Physical Exam Const alert and no apparent distress General Appearance: cooperative HEENT normocephalic and head/scalp atraumatic Eyes PERRL, EOMs intact bilaterally and conjunctivae normal Neck supple General: trachea midline Chest inspection of chest normal Resp normal respiratory effort Auscultation: diminished lung sounds; Negative for rales, rhonchi or wheezes Cardio regular rate and regular rhythm GI normal to inspection, nondistended, normoactive bowel sounds Extremity General Extremity: edema Skin no rashes or lesions noted Neuro Neuro Narrative: Generalized musculoskeletal weakness due to Parkinson's Psych Mood & Affect: flat affect Lab / Micro Data 01/25/24 03:55 01/25/24 03:55 Labs: Laboratory Results - last 24 hr 01/24/24 13:35: B-Natriuretic Peptide 138.8 H 01/24/24 15:36: WBC 15.5 H, RBC 3.51 L, Hgb 12.1, Hct 35.5 L, MCV 101.1 H, MCH 34.5 H, MCHC 34.1, RDW Std Deviation 47.4 H, RDW Coeff of Monica 12.8, Plt Count 256, MPV 9.5, Immature Gran % (Auto) 0.500, Neut % (Auto) 95.1 H, Lymph % (Auto) 1.5 L, [place] % (Auto) 2.5, Eos % (Auto) 0.1, Baso % (Auto) 0.3, Absolute Neuts (auto) 14.7 H, Absolute Lymphs (auto) 0.23 L, Nucleated RBC % 0, Sodium 131 L, Potassium 2.7 L*, Chloride 96 L, Carbon Dioxide 22.0, Anion Gap 13, BUN 39 H, Creatinine 1.59 H, Estim Creat Clear Calc 32.90, Est GFR (MDRD) Af Amer 40 L, Est GFR (MDRD) Non-Af 33 L, BUN/Creatinine Ratio 24.5 H, Glucose 242 H, Calcium 8.7, Total Creatine Kinase 125, Troponin I High Sens 83 H 01/24/24 15:58: Urine Color Yellow, Urine Clarity Sl. Cloudy, Urine pH 5.0, Ur Specific [place] 1.015, Urine Protein 30 H, Urine Glucose (UA) Normal, Urine Ketones 15 H, Urine Occult Blood 25 H, Urine Nitrite Negative, Urine Bilirubin 3 H, Urine Urobilinogen 4 H, Ur Leukocyte Esterase 500 H, Urine RBC 0 SEEN, Urine WBC 25-50 SEEN, Ur Squamous Epith Cells 0-5 SEEN, Urine Bacteria 2+, Urine Mucus 0 SEEN 01/24/24 16:32: Lactic Acid 2.2 H* 01/24/24 18:07: Troponin I High Sens 86 H 01/24/24 20:10: Troponin I High Sens 75 H, MRSA (PCR) Negative 01/24/24 21:45: Lactic Acid 1.4 01/25/24 03:55: WBC 13.4 H, RBC 3.30 L, Hgb 11.3 L, Hct 33.9 L, MCV 102.7 H, MCH 34.2 H, MCHC 33.3, RDW Std Deviation 48.0 H, RDW Coeff of Monica 12.8, Plt Count 250, MPV 9.7, Immature Gran % (Auto) 0.500, Neut % (Auto) 91.5 H, Lymph % (Auto) 3.7 L, [place] % (Auto) 3.9, Eos % (Auto) 0.2, Baso % (Auto) 0.2, Absolute Neuts (auto) 12.3 H, Absolute Lymphs (auto) 0.49 L, Nucleated RBC % 0, Sodium 140, Potassium 3.0 L, Chloride 108 H, Carbon Dioxide 26.0, Anion Gap 6, BUN 28 H, Creatinine 0.72, Estim Creat Clear Calc 50.91, Est GFR (MDRD) Af Amer 99, Est GFR (MDRD) Non-Af 82, BUN/Creatinine Ratio 38.6 H, Glucose 168 H, Calcium 8.3 L, Phosphorus 2.5, Magnesium 1.4 L, Total Bilirubin 0.60, AST 42 H, ALT 10 L, Alkaline Phosphatase 150 H, Total Protein 6.4, Albumin 2.6 L, Globulin 3.8, Albumin/Globulin Ratio 0.7 L, TSH 2.840 01/25/24 04:00: POC Glucose 161 H Micro: Microbiology 01/24/24 15:36 Mucosa - Nose SARS-CoV-2, Influenza & RSV (PCR) - Final Rhythm Strip Rhythm Strip: Sinus Rhythm Rate: 95 Ectopy: None Imaging Radiology Impression Chest X-Ray 01/24/24 15:40 IMPRESSION: Fluid in the right fissure. Electronically Signed: Onel Brink MD at 16:20 EDT , Abdomen/Pelvis CT 01/24/24 17:26 IMPRESSION: (NOT LISTED IN ORDER OF SIGNIFICANCE) Fatty liver. Fibroid uterus. Other findings as above. Electronically Signed: Onel Brink MD at 19:10 EDT , Charges/Coding Visit Charges Inpatient E&M: 96313 Init Hosp L3
[2024-01-25] MEDS: Potassium Chloride 10mEq/100mL 10 MEQ/100 ML IV.SOLN. 100 MEQ IV BOLUS ×2 (08:44→10:13)
[2024-01-25] MEDS: Ceftriaxone 1 GM/50 ML BAG IV (08:44)
[2024-01-25] MEDS: Magnesium Sulfate 4gm/100mL 4 GM/100 ML IV.SOLN. IV (08:44)
[2024-01-25] MEDS: Potassium Chloride Oral Tablet 20 MEQ 60 MEQ PO (09:17)
[2024-01-25] MEDS: Sertraline 100 MG Tablet PO (09:17)
[2024-01-25] MEDS: 0.9% Saline Lock 10 ML Syringe IV ×2 (09:22→18:37)
[2024-01-25] MEDS: CHLORHEXIDINE GLUC 2% CLOTH 1 EACH TOWELETTE TOPICAL (09:34)
--- NOTE | 2024-01-25 09:54 | CASEMGMT ---
AZUL MILLAN Assessment Face to Face with patient for initial transition planning/care coordination assessment. AZUL MILLAN introduced self and role at [facility], pt voices understanding. Pt is A&Ox4 and is resting comfortably in bed and is calm. Care providers, pharmacy, and demographics verified. Admitting dx: Sepsis, UTI LACE Strata: 1 PCP: Luis Enrique Johnson Specialists: Lawson (Neuro - Emmanuel), Customer Service Engineer (KJ [facility]iel), Ortho ([facility] [place]) Preferred Pharmacy: [facility] Insurance: [facility] A/B, [place] Prescription Benefit: Yes LNOK: Pt has a son who lives in [place]. Adilia Casillas (Daughter), David Dobbs (KENYA) Living Arrangements: Pt lives alone in a two story home with a FFSU and a ramp to enter ADLs/IADLs: Pt requires assistance as she is W/C bound. Pt states that she has private duty aides that assist every day. Pt states that the aides come in for 4 hours in the morning and then 3 hours later in the day. Transportation: Aides, KENYA, Daughter. Denies concerns DME: BGM and supplies. W/C x 3. FWW x 3 but does not use. Medical alert. Walk in shower with GB and chair. Pt may qualify for home oxygen. A Verbal list of local in network DME companies provided to the pt at this time. Pt prefers [employer] is she qualifies for home oxygen. HHC/SNF: Reports SNF Hx in [place]. States HHC x 1 year ago but cannot recall the name of the agency Pt?s goal: Return to PLOF Plan: TBD. Anticipate HH vs SNF. PT is pending. Pt states that she is not opposed to either option at this time, but would like to wait and see how she does. CM and SW to follow pt progression in the hospital as well as therapy evaluations to decipher the best DC plan moving forward. Michael Duncan RN, CM
[2024-01-25] MEDS: 0.9% Normal Saline (1000mL) 1,000 ML 50 ML IV (12:00)
[2024-01-25 12:21] LABS: Bedside Glucose 300 mg/dL (74-106)
[2024-01-25] MEDS: Ondansetron 4 MG/2 ML Vial IV (14:43)
[2024-01-25] MEDS: LORazepam 2 MG/ML Syringe 0.25 MG IV (15:07)
[2024-01-25 16:21] LABS: Bedside Glucose 253 mg/dL (74-106)
[2024-01-25] MEDS: Menthol/Lanolin/Calamine/Znox 113 GM Tube 1 APPLIC TOPICAL (21:43)
[2024-01-25] MEDS: Mirtazapine 15 MG Tablet PO (21:47)
[2024-01-25] MEDS: Cefepime HCl 2 GM in 0.9% Normal Saline (100mL MB+) 100 ML IV (22:30)
[2024-01-26] VITALS (8 sets, daily range): BP systolic 75–132; BP diastolic 54–71; PULSE 73–93; RESP 18–31; TEMP 36.6–36.8; O2SAT 93–96; BMI 29.6
[2024-01-26] MEDS: CARBIDOPA/LEVODOPA 1 EACH TABLET.ER PO ×3 (05:21→20:18)
[2024-01-26] MEDS: Heparin Injection (Vial) 5,000 UNIT/ML VIAL 5000 UNIT SC ×3 (05:22→20:28)
[2024-01-26] MEDS: Carbidopa/Levodopa 25/100 Tablet PO ×7 (05:24→20:20)
[2024-01-26] MEDS: Acetaminophen 500 MG Tablet 1000 MG PO ×3 (05:25→20:27)
[2024-01-26] MEDS: Insulin Lispro 100 UNIT/ML INSULN.PEN SC ×3 (05:41→15:25)
[2024-01-26 06:07] LABS: Bedside Glucose 208 mg/dL (74-106)
[2024-01-26 06:37] LABS: Absolute Lymphocyte Count 0.78 X10^3/uL (0.83-4.51); Absolute Neutrophil Count 9.4 X10^3/uL (2.0-7.7); Basophil# 0.03 X10^3/uL; Basophil% 0.3 % (0-1); Eosinophil# 0.08 X10^3/uL; Eosinophils% 0.7 % (0-5); Hematocrit 32.3 % (37-47); Hemoglobin 10.5 g/dL (12.0-15.0); Lymphocyte # 0.78 X10^3/ul (0.83-4.51); Lymphocyte % 7.1 % (19-41); Mean Corp Hgb Conc 32.5 g/dL (32-36); Mean Corpuscular Hgb 33.7 pg (27.0-32.0); Mean Corpuscular Volume 103.5 fL (81-99); Monocyte# 0.56 X10^3/uL; Monocyte% 5.1 % (0-10); NRBC Flagged by Analyzer 0 % (0-5); Neutrophil # 9.41 X10^3/uL (2.7-7.7); Neutrophil % 86.3 % (47-70); Platelet Count 230 K/mm3 (150-450); RBC Distribution Width CV 12.9 % (11.6-14.6); RBC Distribution Width SD 48.9 fl (35.1-43.9); Red Blood Count 3.12 M/mm3 (4.2-5.4); White Blood Count 10.9 K/mm3 (4.4-11.0)
[2024-01-26 06:47] LABS: Anion Gap 5 (5-15); BUN 16 mg/dL (7-18); BUN/Creat Ratio 30.6 RATIO (10-20); Calcium,Total 8.3 mg/dL (8.5-10.1); Chloride 106 mmol/L (98-107); Creatinine, Serum 0.52 mg/dL (0.55-1.02); EST Glomerular Filtration Rate 120 mL/min (>60); Est Glom Filt Rate - Afr Amer 145 mL/min (>60); Glucose 217 mg/dL (74-106); Potassium 3.1 mmol/L (3.5-5.1); Sodium Level 138 mmol/L (136-145)
--- NOTE | 2024-01-26 06:55 | PCM.PN.INT ---
Assessment & Plan Assessment/Plan (1) Septic shock: PLAN: Plan RECOMMENDATIONS: 1. Continue antimicrobials. 2. Electrolyte repletion as needed. 3. Physical therapy to work with the patient. 4. Continue baseline Parkinson's regimen. 5. Encourage incentive spirometer use while in bed. 6. Will sign off from a critical care perspective. Please call with any additional questions. IMPRESSIONS: 1. Septic shock The patient presented to the hospital with clinical signs and symptoms concerning for underlying urinary tract source of infection with associated fluid refractory hypotension, which necessitated vasopressor support. The patient has improved clinically and has been weaned from Levophed. The patient's antimicrobials can be de-escalated, based upon cultures and sensitivities. CT abdomen/pelvis demonstrated no acute concerning findings. 2. Troponin elevation Likely secondary to demand ischemia in the setting of #1. Surface echocardiogram is pending. 3. Parkinson's disease/diabetes mellitus/hypertension/depression Complicates care, management, recovery and prognosis. Continue to hold home antihypertensives. Physical therapy to work with the patient. This note was generated with [employer] dictation software. It may contain incorrect words, spelling, and punctuation that were not noted in checking the note before signing. Subjective Subjective The patient was seen and examined at the bedside this morning. Events from the last 24 hours have been reviewed. The patient is currently afebrile, hemodynamically stable and maintaining appropriate oxygen saturations on 3 L/min via nasal cannula. The patient has not required any further vasopressor support. Potassium is low at 3.1. Creatinine is within normal limits. Objective Data Objective Data The patient's most recent lab work, culture data and imaging studies have all been personally reviewed. Urine culture was positive for both pansensitive Klebsiella pneumonia and E. coli. Vital Signs: Vital Signs Temp Pulse Resp BP Pulse Ox O2 Del Method O2 Flow Rate 97.9 F 80 20 H 132/71 H 95 Nasal Cannula 3 01/26/24 04:00 01/26/24 04:00 01/26/24 04:00 01/26/24 04:00 01/26/24 04:00 01/26/24 04:00 01/26/24 04:00 Oxygen Flow Rate (L/min) 3 Oxygen Delivery Method Nasal Cannula Weight: 194 lb 11.2 oz Body Mass Index (BMI) 29.6 Intake & Output: Intake and Output for Last 24 Hours 01/24/24 01/25/24 01/26/24 23:59 23:59 23:59 Intake Total 3270.52 / 3631.82 2284.78 / 2284.78 867.5 / 867.5 Output Total 450 / 800 2030 / 2030 800 / 800 Balance 2820.52 / 2831.82 254.78 / 254.78 67.5 / 67.5 Lab / Micro Data Attestation: I reviewed the patient's lab results. 01/26/24 05:10 01/26/24 05:10 Labs: Laboratory Results - last 24 hr 01/25/24 03:55: Hemoglobin A1c 7.0 H 01/25/24 11:48: POC Glucose 300 H 01/25/24 16:02: POC Glucose 253 H 01/26/24 05:10: WBC 10.9, RBC 3.12 L, Hgb 10.5 L, Hct 32.3 L, MCV 103.5 H, MCH 33.7 H, MCHC 32.5, RDW Std Deviation 48.9 H, RDW Coeff of Monica 12.9, Plt Count 230, MPV 10.0, Immature Gran % (Auto) 0.500, Neut % (Auto) 86.3 H, Lymph % (Auto) 7.1 L, [place] % (Auto) 5.1, Eos % (Auto) 0.7, Baso % (Auto) 0.3, Absolute Neuts (auto) 9.4 H, Absolute Lymphs (auto) 0.78 L, Nucleated RBC % 0, Sodium 138, Potassium 3.1 L, Chloride 106, Carbon Dioxide 27.0, Anion Gap 5, BUN 16, Creatinine 0.52 L, Estim Creat Clear Calc 64.00, Est GFR (MDRD) Af Amer 145, Est GFR (MDRD) Non-Af 120, BUN/Creatinine Ratio 30.6 H, Glucose 217 H, Calcium 8.3 L 01/26/24 05:40: POC Glucose 208 H Micro: Microbiology 01/24/24 15:58 Urine Catheter - Catheter Urine Culture - Final Klebsiella pneumoniae sp pneum Escherichia coli 01/24/24 15:36 Mucosa - Nose SARS-CoV-2, Influenza & RSV (PCR) - Final Rhythm Strip Rhythm Strip: Sinus Rhythm Rate: 95 Ectopy: None Physical Exam Const alert and no apparent distress General Appearance: cooperative HEENT normocephalic and head/scalp atraumatic Eyes PERRL, EOMs intact bilaterally and conjunctivae normal Neck supple General: trachea midline Chest inspection of chest normal Resp normal respiratory effort Auscultation: diminished lung sounds; Negative for rales, rhonchi or wheezes Cardio regular rate and regular rhythm GI normal to inspection, nondistended, normoactive bowel sounds Extremity General Extremity: edema Skin no rashes or lesions noted Neuro Neuro Narrative: Generalized musculoskeletal weakness due to Parkinson's Psych Mood & Affect: flat affect Charges/Coding Visit Charges Inpatient E&M: 98362 Subs Hosp L2
[2024-01-26] MEDS: Potassium Chloride 10mEq/100mL 10 MEQ/100 ML IV.SOLN. 100 MEQ IV BOLUS ×4 (07:48→11:45)
[2024-01-26] MEDS: Sertraline 100 MG Tablet PO (07:51)
[2024-01-26 11:41] LABS: Bedside Glucose 243 mg/dL (74-106)
[2024-01-26] MEDS: Ondansetron 4 MG/2 ML Vial IV (12:02)
--- NOTE | 2024-01-26 12:06 | EKG12_ITS ---
Test Reason : CHEST PAIN Blood Pressure : / mmHG Vent. Rate : 085 BPM Atrial Rate : 000 BPM P-R Int : 000 ms QRS Dur : 068 ms QT Int : 360 ms P-R-T Axes : 000 010 034 degrees QTc Int : 428 ms Normal sinus rhythm occ PAC Otherwise Normal Confirmed by Naga Evans ([id number]), sound editor SLOANE AGUILAR ([id number]) on 02/02/2024 6:39:20 AM Referred By: ROYA Confirmed By:Naga Evans
--- NOTE | 2024-01-26 15:00 | PN.HOSP_ITS ---
Reason for Visit Reason for Visit: Diagnoses Sepsis, unspecified organism (01/24/24) Elevated white blood cell count, unspecified (01/24/24) Hypo-osmolality and hyponatremia (01/24/24) Acidosis, unspecified (01/24/24) Hypokalemia (01/24/24) Hypotension, unspecified (01/24/24) Hypoxemia (01/24/24) Syncope and collapse (01/24/24) Severe sepsis with septic shock (01/24/24) Other specified abnormal findings of blood chemistry (01/24/24) Unspecified abnormal findings in urine (01/24/24) Subjective Subjective Patient is feeling somewhat better today, just somewhat weak overall Objective Data Objective Data Vital Signs: Vital Signs Temp Pulse Resp BP Pulse Ox O2 Del Method O2 Flow Rate 98.2 F 89 31 H 115/71 95 Nasal Cannula 3 01/26/24 14:14 01/26/24 14:14 01/26/24 14:14 01/26/24 14:14 01/26/24 14:14 01/26/24 14:14 01/26/24 14:19 Oxygen Flow Rate (L/min) 3 Oxygen Delivery Method Nasal Cannula Weight: 88.314 kg Body Mass Index (BMI) 29.6 Intake & Output: Intake and Output for Last 24 Hours 01/24/24 01/25/24 01/26/24 23:59 23:59 23:59 Intake Total 3270.52 / 3631.82 2284.78 / 2284.78 1267.5 / 1267.5 Output Total 450 / 800 2029 / 2030 1050 / 1050 Balance 2820.52 / 2831.82 254.78 / 254.78 217.5 / 217.5 Lab / Micro Data 01/26/24 05:10 01/26/24 05:10 Labs: Laboratory Results - last 24 hr 01/25/24 16:02: POC Glucose 253 H 01/26/24 05:10: WBC 10.9, RBC 3.12 L, Hgb 10.5 L, Hct 32.3 L, MCV 103.5 H, MCH 33.7 H, MCHC 32.5, RDW Std Deviation 48.9 H, RDW Coeff of Monica 12.9, Plt Count 230, MPV 10.0, Immature Gran % (Auto) 0.500, Neut % (Auto) 86.3 H, Lymph % (Auto) 7.1 L, [place] % (Auto) 5.1, Eos % (Auto) 0.7, Baso % (Auto) 0.3, Absolute Neuts (auto) 9.4 H, Absolute Lymphs (auto) 0.78 L, Nucleated RBC % 0, Sodium 138, Potassium 3.1 L, Chloride 106, Carbon Dioxide 27.0, Anion Gap 5, BUN 16, C reatinine 0.52 L, Estim Creat Clear Calc 64.00, Est GFR (MDRD) Af Amer 145, Est GFR (MDRD) Non-Af 120, BUN/Creatinine Ratio 30.6 H, Glucose 217 H, Calcium 8.3 L 01/26/24 05:40: POC Glucose 208 H 01/26/24 11:24: POC Glucose 243 H Micro: Microbiology 01/26/24 12:15 Stool C. difficile GDH Antigen & Toxins - Final 01/26/24 12:15 Stool Clostridioides difficile (PCR) - Final 01/24/24 15:58 Urine Catheter - Catheter Urine Culture - Final Klebsiella pneumoniae sp pneum Escherichia coli 01/24/24 15:36 Mucosa - Nose SARS-CoV-2, Influenza & RSV (PCR) - Final Rhythm Strip Rhythm Strip: Sinus Rhythm Rate: 95 Ectopy: None Physical Exam Narrative General: Alert, oriented HEENT: Atraumatic, normocephalic Eyes: Anicteric, normal conjunctiva, extraocular movements grossly intact Neck: Supple Respiratory: Some crackles in right mid field, normal respiratory effort Cardiovascular: Regular rate and rhythm GI: Soft, nontender, nondistended Extremities: No edema Musculoskeletal: Moving all extremities in bed Neuro: No overt focal neurological deficits in bed, gen weak, hx parkinsons Skin: No rashes appreciated Psych: Cooperative Assessment & Plan Assessment/Plan (1) Hypoxia: (2) Elevated serum creatinine: (3) Sepsis: (4) Abnormal urinalysis: (5) Near syncope: (6) Acute hypotension: (7) Hypokalemia: (8) Hyponatremia: (9) Elevated troponin: PLAN: Plan # Septic shock suspect 2/2 Klebsiella and E. coli UTI -Patient met sep1 and sep3 criteria -UA suggestive of UTI and CT abdomen pelvis unrevealing for source and chest x- ray with no pneumonia -Blood and urine cultures pending -Patient on Rocephin due to presumed urinary tract infection source -Patient in ICU with shade maker consultation -BP did not respond to initial fluids and patient required vasopressor initiation, has been off for several hours -01/25: Urine culture growing Klebsiella and E. coli with colony counts greater than 100,000. Will transition back to Rocephin and tomorrow given sensitivities. Blood pressure is improving, white blood cell count normalized, afebrile # CATIE?resolved -No known baseline creatinine however 1.52 on arrival and decreased to 0.72 -IV fluids -01/25: Creatinine today 0.52, suspect this is close to baseline. Patient has received IV fluids and responded well. Had some crackles in right midlung field, did have fluid in the fissure on chest x-ray on admission, denies any specific respiratory complaints, if any worsening or any respiratory complaints can consider chest x-ray and further workup from this perspective however overall patient improving. No known history of heart failure though no echocardiogram in our system either however it does not appear overloaded at this time. Fluids discontinued. Can workup further pending clinical progress # Macrocytic anemia -Unclear baseline -hemoglobin 12.1 on presentation and is down trended to 10.5 however all cell lines decreased and given significant CATIE on presentation suspect she may have been relatively hemoconcentrated -Will check a.m. B12, folate, iron panel and hemoglobin in the a.m., no evidence of overt bleeding at this time #Anxiety and depression -Patient intermittently with panic attacks -Supportive care -Continue mirtazapine and home Zoloft #Type 2 diabetes mellitus -Glucose checks and sliding scale insulin hold home oral hypoglycemic agents -01/25: Glucose has been elevated however patient some glipizide and metformin have been held, continue sliding scale, can consider scheduling a long-acting insulin if glucoses remain elevated #Hypokalemia/hypomagnesemia -2.7 on presentation, 3.0 this morning, further replacement ordered -Magnesium 1.4, this is also been replaced -01/25: Will continue to replace, unclear why potassium remains low, home hydrochlorothiazide on hold #Elevated troponin on admission -83-> 86-> 75 -Suspect all demand secondary to above -01/25: No further workup at this time, will restart home carvedilol at small dose and this may also help some with her anxiety #Hyponatremia-resolved -No known baseline but 131 on presentation, suspect due to dehydration as improved to 140 with fluids -01/25: This is resolved, suspect due to dehydration as it is improved # Hypertension -BP soft and patient presented with sepsis -Holding home carvedilol and hydrochlorothiazide -01/25: Resuming home carvedilol at low-dose with holding parameters, continue to hold hydrochlorothiazide # Parkinson's disease -Patient with DBS -Wheelchair-bound -Continue home Sinemet -01/25: PT/OT, may need placement upon discharge patient was living alone with health aides coming into help, may need rehab prior to DC home #DVT ppx: Heparin subcu Racquel Hicks MD Time spent in the patient's overall evaluation,decision-making process, review of diagnostic data, adjustment of management, discussion with other providers, nursing nursing and ancillary staff involved in patient's care documentation, 41 minutes Charges/Coding Visit Charges Inpatient E&M: 06627 Subs Hosp L2
--- NOTE | 2024-01-26 15:00 | CASEMGMT ---
Social Work Pt is wheelchair bound and lives alone. Pt has aids that come to her home daily from 8-10 am and 5:30-7:30 pm. SW did received therapy today and pt is not back to baseline at this time and continued therapy at hi is recommended. SW met with pt and introduced self and role of SW. SW spoke with pt regarding SNF placement, explaining rehab and Medicare coverage. Pt is agreeable that short term SNF is needed prior to return home. A list of SNF providers including quality and resource use data and consistent with the patient?s preferred geographic region, medical needs, and insurance network were provided from the [employer]. Pt would like to consult with her dgt Adilia prior to choosing a provider. Pt gave SW permission to call Adilia. Phone call placed to Adilia and SNF recommendations explained. Adilia is agreeable to this and will be in tonight to review the list and discuss options with pt. JOSE ROBERTO will meet with pt in the morning to obtain SNF preferences. MINDY Mckeon
--- NOTE | 2024-01-26 15:08 | CASEMGMT ---
Social Work SW met with pt to discuss advance directives. Pt states she has a living will and health care POA naming her son Matt Casillas. SW informed pt documents are not on file at [facility]. Pt states she has given them to her PCP. Phone call to Dr. Johnson's office and requested documents be faxed to [facility]. MINDY Mckeon
[2024-01-26] MEDS: Menthol/Lanolin/Calamine/Znox 113 GM Tube 1 APPLIC TOPICAL ×2 (15:17→20:19)
[2024-01-26 15:49] LABS: Bedside Glucose 218 mg/dL (74-106)
[2024-01-26] MEDS: Carvedilol 3.125 MG TABLET PO (16:19)
[2024-01-26] MEDS: Mirtazapine 15 MG Tablet PO (20:25)
--- NOTE | 2024-01-26 21:18 | PCM.HOSP.N ---
Hospitalist Note Called for hypotension. Maps are greater than 65 currently at 66 but systolic is in the upper 70s with diastolics in the 60s. Bilateral manuals were done and they do correlate. Patient is mentating well and seems to be perfusing well. She has done this the last 3 nights but has been off pressors for 24 hours now. I am questioning whether or not she has some autonomic dysfunction with her Parkinson's disease. Current MAP is 66 so we will check lactic acid and give 1 dose of midodrine 10 mg. If her blood pressure seems to respond to midodrine will schedule 10 mg at 2000 nightly for now. Hold home Coreg which was reinitiated earlier today for how elevated blood pressures.
[2024-01-26] MEDS: Midodrine HCl 5 MG Tablet 10 MG PO (21:51)
[2024-01-26] MEDS: Cefepime HCl 2 GM in 0.9% Normal Saline (100mL MB+) 100 ML IV (21:51)
[2024-01-26 22:35] LABS: Lactic Acid 1.4 mmol/L (0.4-1.9)
[2024-01-27] VITALS (7 sets, daily range): BP systolic 95–119; BP diastolic 56–81; PULSE 69–120; RESP 16–20; TEMP 36.4–37.2; O2SAT 95–98; BMI 30.2
[2024-01-27] MEDS: CARBIDOPA/LEVODOPA 1 EACH TABLET.ER PO ×3 (05:24→21:41)
[2024-01-27] MEDS: Heparin Injection (Vial) 5,000 UNIT/ML VIAL 5000 UNIT SC ×3 (05:25→21:52)
[2024-01-27] MEDS: Carbidopa/Levodopa 25/100 Tablet PO ×5 (05:25→19:46)
[2024-01-27] MEDS: Acetaminophen 500 MG Tablet 1000 MG PO ×3 (05:27→21:40)
[2024-01-27] MEDS: Menthol/Lanolin/Calamine/Znox 113 GM Tube 1 APPLIC TOPICAL ×2 (05:28→21:43)
--- NOTE | 2024-01-27 07:37 | PN.HOSP_ITS ---
Reason for Visit Reason for Visit: Diagnoses Sepsis, unspecified organism (01/24/24) Elevated white blood cell count, unspecified (01/24/24) Hypo-osmolality and hyponatremia (01/24/24) Acidosis, unspecified (01/24/24) Hypokalemia (01/24/24) Hypotension, unspecified (01/24/24) Hypoxemia (01/24/24) Syncope and collapse (01/24/24) Severe sepsis with septic shock (01/24/24) Other specified abnormal findings of blood chemistry (01/24/24) Unspecified abnormal findings in urine (01/24/24) Subjective Subjective Patient is an 78-year-old lady admitted following a syncopal episode. An assessment of septic shock secondary to acute cystitis made admitted to the intensive care unit where patient has since been managed Objective Data Objective Data Vital Signs: Vital Signs Temp Pulse Resp BP Pulse Ox O2 Del Method O2 Flow Rate 98.2 F 69 20 H 105/66 97 Nasal Cannula 2 01/27/24 04:00 01/27/24 04:00 01/27/24 04:00 01/27/24 04:00 01/27/24 04:00 01/27/24 04:00 01/27/24 04:00 Oxygen Flow Rate (L/min) 2 Oxygen Delivery Method Nasal Cannula Weight: 90.31 kg Body Mass Index (BMI) 30.2 Intake & Output: Intake and Output for Last 24 Hours 01/25/24 01/26/24 01/27/24 23:59 23:59 23:59 Intake Total 2284.78 / 2284.78 1367.5 / 1367.5 Output Total 2029 / 2029 1050 / 1050 300 / 300 Balance 254.78 / 254.78 317.5 / 317.5 -300 / -300 Lab / Micro Data 01/27/24 07:13 01/26/24 05:10 Labs: Laboratory Results - last 24 hr 01/26/24 11:24: POC Glucose 243 H 01/26/24 15:25: POC Glucose 218 H 01/26/24 22:00: Lactic Acid 1.4 Micro: Microbiology 01/26/24 12:15 Stool C. difficile GDH Antigen & Toxins - Final 01/26/24 12:15 Stool Clostridioides difficile (PCR) - Final 01/24/24 15:58 Urine Catheter - Catheter Urine Culture - Final Klebsiella pneumoniae sp pneum Escherichia coli 01/24/24 15:36 Mucosa - Nose SARS-CoV-2, Influenza & RSV (PCR) - Final Radiography Diagnostic Testing: Radiology Impression Echocardiogram 01/24/24 17:34 Interpretation Summary The estimated ejection fraction is 65 %. Unable to assess diastolic dysfunction. The left atrium is mildly enlarged. Ordering Physician: Edith Cornelius Referring Physician: ANNALEE PERDOMO Performed By: Emelina Martin RCS Rhythm Strip Rhythm Strip: Sinus Rhythm Rate: 95 Ectopy: None Physical Exam Narrative GENERAL: cooperative HEENT: Atraumatic; normocephalic EYES; Anicteric, Normal Conjunctiva NECK; supple, normal thyroid, RESPIRATORY: Diminished to auscultation CARDIOVASCULAR: Regular S1 S2, GI: soft, normoactive bowel sounds, : No Renal angle tenderness; EXTREMITIES: No edema, no clubbing, MUSCULOSKELETAL: no muscle wasting NEURO: Awake; no lateralizing signs. SKIN: No Rash PSYCH; Flat affect Assessment & Plan Assessment/Plan (1) Hypoxia: (2) Sepsis: PLAN: Plan Patient is an 78-year-old lady admitted following a syncopal episode. An assessment of septic shock secondary to acute cystitis made admitted to the intensive care unit where patient has since been managed 1. Septic shock suspect 2/2 Klebsiella and E. coli UTI ? Patient was treated per protocol with IV fluid resuscitation, broad-spectrum antibiotic therapy and pressors. Patient has since been weaned off pressors. Patient cultures came back positive for E. coli and Klebsiella sensitivities reviewed patient is on appropriate antibiotic therapy 2. Acute kidney injury ? Potentially secondary to ATN from sepsis resolved 3. Anemia ? Secondary to chronic disorder monitoring H&H and transfuse if patient becomes symptomatic or hemoglobin falls below 7 4. Hypokalemia -Corrected per protocol 5. Hypomagnesemia -Corrected for protocol 6. Hypotension Secondary to septic shock patient blood pressure continues to improve patient is on midodrine 7. Essential hypertension ? Patient antihypertensive on hold given her relatively low blood pressure 8. Diabetes mellitus type II -patient's oral hypoglycemics held. Placed on long acting insulin, Accu-Cheks a.c. and at bedtime and covered with sliding scale insulin 9. Hyponatremia Secondary to hypovolemic hyponatremia resuscitated with IV fluids resolved 10. Parkinson's disease with significant debility ? Patient is on wheelchair-bound patient is on Sinemet did continue 11. Physical deconditioning ? Requested for PT OT eval and child protective services social worker to assist with discharge planning 12. Depression ? Patient is on sertraline 13. DVT prophylaxis ? SC heparin Time spent in the patient's overall evaluation,decision-making process, review of diagnostic data, adjustment of management, discussion with other providers, nursing nursing and ancillary staff involved in patient's care documentation, 52 minutes Charges/Coding Visit Charges Inpatient E&M: 51881 [facility] Hosp L3
[2024-01-27 07:40] LABS: Absolute Lymphocyte Count 0.86 X10^3/uL (0.83-4.51); Absolute Neutrophil Count 8.7 X10^3/uL (2.0-7.7); Basophil# 0.04 X10^3/uL; Basophil% 0.4 % (0-1); Eosinophil# 0.09 X10^3/uL; Eosinophils% 0.9 % (0-5); Hematocrit 31.8 % (37-47); Hemoglobin 10.3 g/dL (12.0-15.0); Lymphocyte # 0.86 X10^3/ul (0.83-4.51); Lymphocyte % 8.2 % (19-41); Mean Corp Hgb Conc 32.4 g/dL (32-36); Mean Corpuscular Hgb 33.6 pg (27.0-32.0); Mean Corpuscular Volume 103.6 fL (81-99); Mean Platelet Vol. 10.2 fl (6.2-12.0); Monocyte# 0.71 X10^3/uL; Monocyte% 6.8 % (0-10); NRBC Flagged by Analyzer 0 % (0-5); Neutrophil # 8.68 X10^3/uL (2.7-7.7); Neutrophil % 82.9 % (47-70); Platelet Count 231 K/mm3 (150-450); RBC Distribution Width CV 12.9 % (11.6-14.6); RBC Distribution Width SD 48.3 fl (35.1-43.9); Red Blood Count 3.07 M/mm3 (4.2-5.4); White Blood Count 10.5 K/mm3 (4.4-11.0)
[2024-01-27] MEDS: Insulin Lispro 100 UNIT/ML INSULN.PEN SC ×3 (08:20→17:05)
[2024-01-27 08:26] LABS: Vitamin B12 > 2000 pg/mL (211-911)
[2024-01-27 08:41] LABS: Bedside Glucose 203 mg/dL (74-106)
[2024-01-27 09:10] LABS: Anion Gap 4 (5-15); BUN 19 mg/dL (7-18); BUN/Creat Ratio 34.4 RATIO (10-20); Calcium,Total 8.4 mg/dL (8.5-10.1); Chloride 104 mmol/L (98-107); Creatinine, Serum 0.55 mg/dL (0.55-1.02); EST Glomerular Filtration Rate 112 mL/min (>60); Est Glom Filt Rate - Afr Amer 136 mL/min (>60); Estimated Creatinine Clearance 64.71 ml/min; Ferritin 275 ng/mL (8-252); Glucose 224 mg/dL (74-106); Iron 25 ug/dL (50-170); Iron Binding Capacity,Total 279 ug/dL (250-450); Magnesium 1.9 mg/dL (1.6-2.6); Potassium 3.5 mmol/L (3.5-5.1); Sodium Level 135 mmol/L (136-145)
--- NOTE | 2024-01-27 09:27 | CASEMGMT ---
Addendum entered by Chelsey Amin 01/27/24 17:15: Social Work Pt has not yet been accepted at TCU. Pt will need additional therapy prior to TCU making a determination of acceptance. SW to follow up tomorrow for SNF placement. MINDY Mckeon Original Note: Social Work SW met with pt who indicates her preferences for SNF places. [facility]. [facility]. [facility]. SW answered pt questions regarding SNF. Referral made to [facility] in TCU. SW will await determination of acceptance. Plan: TCU, pending precert MINDY Mckeon
[2024-01-27] MEDS: Sertraline 100 MG Tablet PO (09:58)
[2024-01-27] MEDS: Ceftriaxone 1 GM/50 ML BAG IV (10:01)
[2024-01-27 11:45] LABS: Bedside Glucose 244 mg/dL (74-106)
[2024-01-27 17:49] LABS: Bedside Glucose 281 mg/dL (74-106)
[2024-01-27] MEDS: MELATONIN 10 MG TABLET PO (21:40)
--- NOTE | 2024-01-27 21:45 | NURSING ---
Pt would like to rest overnight and requested to not be awaken until 0530 in the morning for her medication and VS.
[2024-01-27] MEDS: Mirtazapine 15 MG Tablet PO (21:47)
[2024-01-27] MEDS: Midodrine HCl 5 MG Tablet 10 MG PO (21:51)
[2024-01-27 23:46] LABS: Bedside Glucose 256 mg/dL (74-106)
[2024-01-28] VITALS (8 sets, daily range): BP systolic 96–104; BP diastolic 64–87; PULSE 80–114; RESP 16–18; TEMP 36.4–36.7; O2SAT 92–97; BMI 30.8
[2024-01-28] MEDS: Carbidopa/Levodopa 25/100 Tablet PO ×7 (06:04→20:43)
[2024-01-28] MEDS: Menthol/Lanolin/Calamine/Znox 113 GM Tube 1 APPLIC TOPICAL ×2 (06:06→15:07)
[2024-01-28] MEDS: CARBIDOPA/LEVODOPA 1 EACH TABLET.ER PO ×3 (06:06→21:49)
[2024-01-28] MEDS: Acetaminophen 500 MG Tablet 1000 MG PO ×3 (06:11→21:51)
[2024-01-28] MEDS: Heparin Injection (Vial) 5,000 UNIT/ML VIAL 5000 UNIT SC ×3 (06:20→21:55)
[2024-01-28 06:55] LABS: Bedside Glucose 222 mg/dL (74-106)
[2024-01-28 07:13] LABS: Absolute Neutrophil Count 7.6 X10^3/uL (2.0-7.7); Basophil# 0.05 X10^3/uL; Basophil% 0.5 % (0-1); Eosinophil# 0.21 X10^3/uL; Eosinophils% 2.1 % (0-5); Hematocrit 33.8 % (37-47); Hemoglobin 10.8 g/dL (12.0-15.0); Lymphocyte % 12.1 % (19-41); Mean Corpuscular Hgb 33.3 pg (27.0-32.0); Mean Corpuscular Volume 104.3 fL (81-99); Mean Platelet Vol. 10.8 fl (6.2-12.0); Monocyte# 0.72 X10^3/uL; Monocyte% 7.3 % (0-10); NRBC Flagged by Analyzer 0 % (0-5); Neutrophil # 7.58 X10^3/uL (2.7-7.7); Neutrophil % 76.4 % (47-70); Platelet Count 276 K/mm3 (150-450); RBC Distribution Width CV 12.8 % (11.6-14.6); Red Blood Count 3.24 M/mm3 (4.2-5.4); White Blood Count 9.9 K/mm3 (4.4-11.0)
[2024-01-28 07:28] LABS: Anion Gap 5 (5-15); BUN 17 mg/dL (7-18); BUN/Creat Ratio 36.6 RATIO (10-20); Calcium,Total 8.6 mg/dL (8.5-10.1); Chloride 106 mmol/L (98-107); Creatinine, Serum 0.46 mg/dL (0.55-1.02); EST Glomerular Filtration Rate 137 mL/min (>60); Est Glom Filt Rate - Afr Amer 166 mL/min (>60); Estimated Creatinine Clearance 65.27 ml/min; Glucose 223 mg/dL (74-106); Potassium 3.9 mmol/L (3.5-5.1); Sodium Level 138 mmol/L (136-145)
--- NOTE | 2024-01-28 07:35 | PN.HOSP_ITS ---
Reason for Visit Reason for Visit: Diagnoses Sepsis, unspecified organism (01/24/24) Elevated white blood cell count, unspecified (01/24/24) Hypo-osmolality and hyponatremia (01/24/24) Acidosis, unspecified (01/24/24) Hypokalemia (01/24/24) Hypotension, unspecified (01/24/24) Hypoxemia (01/24/24) Syncope and collapse (01/24/24) Severe sepsis with septic shock (01/24/24) Other specified abnormal findings of blood chemistry (01/24/24) Unspecified abnormal findings in urine (01/24/24) Subjective Subjective Patient seen had a relatively uneventful night. Plan is for patient to be transferred to a longterm facility pending insurance approval Objective Data Objective Data Vital Signs: Vital Signs Temp Pulse Resp BP Pulse Ox O2 Del Method O2 Flow Rate 97.6 F L 92 18 104/68 96 Nasal Cannula 2 01/28/24 06:01 01/28/24 06:01 01/28/24 06:01 01/28/24 06:01 01/28/24 06:01 01/28/24 06:01 01/28/24 06:01 Oxygen Flow Rate (L/min) 2 Oxygen Delivery Method Nasal Cannula Weight: 91.9 kg Body Mass Index (BMI) 30.8 Intake & Output: Intake and Output for Last 24 Hours 01/26/24 01/27/24 01/28/24 23:59 23:59 23:59 Intake Total 1367.5 / 1367.5 770 / 770 Output Total 1050 / 1050 800 / 800 600 / 600 Balance 317.5 / 317.5 -30 / -30 -600 / -600 Lab / Micro Data 01/28/24 05:54 01/28/24 05:54 Labs: Laboratory Results - last 24 hr 01/27/24 07:13: WBC 10.5, RBC 3.07 L, Hgb 10.3 L, Hct 31.8 L, MCV 103.6 H, MCH 33.6 H, MCHC 32.4, RDW Std Deviation 48.3 H, RDW Coeff of Monica 12.9, Plt Count 231, MPV 10.2, Immature Gran % (Auto) 0.800, Neut % (Auto) 82.9 H, Lymph % (Auto) 8.2 L, Branch % (Auto) 6.8, Eos % (Auto) 0.9, Baso % (Auto) 0.4, Absolute Neuts (auto) 8.7 H, Absolute Lymphs (auto) 0.86, Nucleated RBC % 0, Sodium 135 L , Potassium 3.5, Chloride 104, Carbon Dioxide 27.0, Anion Gap 4 L, BUN 19 H, Creatinine 0.55, Estim Creat Clear Calc 64.71, Est GFR (MDRD) Af Amer 136, Est GFR (MDRD) Non-Af 112, BUN/Creatinine Ratio 34.4 H, Glucose 224 H, Calcium 8.4 L , Magnesium 1.9, Iron 25 L, TIBC 279, Iron Saturation 9.0 L, Ferritin 275 H, V itamin B12 > 2000 H, Folate 37.50 01/27/24 08:19: POC Glucose 203 H 01/27/24 11:22: POC Glucose 244 H 01/27/24 17:02: POC Glucose 281 H 01/27/24 21:58: POC Glucose 256 H 01/28/24 05:54: WBC 9.9, RBC 3.24 L, Hgb 10.8 L, Hct 33.8 L, MCV 104.3 H, MCH 33.3 H, MCHC 32.0, RDW Std Deviation 49.0 H, RDW Coeff of Monica 12.8, Plt Count 276, MPV 10.8, Immature Gran % (Auto) 1.600 H, Neut % (Auto) 76.4 H, Lymph % (Auto) 12.1 L, Branch % (Auto) 7.3, Eos % (Auto) 2.1, Baso % (Auto) 0.5, Absolute Neuts (auto) 7.6, Absolute Lymphs (auto) 1.20, Nucleated RBC % 0, Sodium 138, Potassium 3.9, Chloride 106, Carbon Dioxide 27.0, Anion Gap 5, BUN 17, C reatinine 0.46 L, Estim Creat Clear Calc 65.27, Est GFR (MDRD) Af Amer 166, Est GFR (MDRD) Non-Af 137, BUN/Creatinine Ratio 36.6 H, Glucose 223 H, Calcium 8.6 01/28/24 06:16: POC Glucose 222 H Micro: Microbiology 01/24/24 17:45 Blood Culture (Wb) - Anticubital Right Blood Culture - Preliminary No growth in 48 hours. 01/26/24 12:15 Stool C. difficile GDH Antigen & Toxins - Final 01/26/24 12:15 Stool Clostridioides difficile (PCR) - Final 01/24/24 15:58 Urine Catheter - Catheter Urine Culture - Final Klebsiella pneumoniae sp pneum Escherichia coli 01/24/24 15:36 Mucosa - Nose SARS-CoV-2, Influenza & RSV (PCR) - Final Rhythm Strip Rhythm Strip: Sinus Rhythm Rate: 95 Ectopy: None Physical Exam Narrative GENERAL: cooperative HEENT: Atraumatic; normocephalic EYES; Anicteric, Normal Conjunctiva NECK; supple, normal thyroid, RESPIRATORY: Diminished to auscultation CARDIOVASCULAR: Regular S1 S2, GI: soft, normoactive bowel sounds, : No Renal angle tenderness; EXTREMITIES: No edema, no clubbing, MUSCULOSKELETAL: no muscle wasting NEURO: Awake; no lateralizing signs. SKIN: No Rash PSYCH; Flat affect Assessment & Plan Assessment/Plan (1) Hypoxia: (2) Sepsis: PLAN: Plan Patient is an 78-year-old lady admitted following a syncopal episode. An assessment of septic shock secondary to acute cystitis made admitted to the intensive care unit where patient has since been managed 1. Septic shock suspect 2/2 Klebsiella and E. coli UTI ? Patient was treated per protocol with IV fluid resuscitation, broad-spectrum antibiotic therapy and pressors. Patient has since been weaned off pressors. Patient cultures came back positive for E. coli and Klebsiella sensitivities reviewed patient is on appropriate antibiotic therapy -Switched antibiotics from IV to p.o. 2. Acute kidney injury ? Potentially secondary to ATN from sepsis resolved 3. Anemia ? Secondary to chronic disorder monitoring H&H and transfuse if patient becomes symptomatic or hemoglobin falls below 7 4. Hypokalemia -Corrected per protocol 5. Hypomagnesemia -Corrected for protocol 6. Hypotension Secondary to septic shock patient blood pressure continues to improve patient is on midodrine 7. Essential hypertension ? Patient antihypertensive on hold given her relatively low blood pressure 8. Diabetes mellitus type II -patient's oral hypoglycemics held. Placed on long acting insulin, Accu-Cheks a.c. and at bedtime and covered with sliding scale insulin 9. Hyponatremia Secondary to hypovolemic hyponatremia resuscitated with IV fluids resolved 10. Parkinson's disease with significant debility ? Patient is on wheelchair-bound patient is on Sinemet did continue 11. Physical deconditioning ? Requested for PT OT eval and school social worker to assist with discharge planning 12. Depression ? Patient is on sertraline 13. DVT prophylaxis ? SC heparin Time spent in the patient's overall evaluation,decision-making process, review of diagnostic data, adjustment of management, discussion with other providers, nursing nursing and ancillary staff involved in patient's care documentation, 40 minutes Charges/Coding Visit Charges Inpatient E&M: 60323 Subs Hosp L2
[2024-01-28] MEDS: Insulin Lispro 100 UNIT/ML INSULN.PEN SC ×3 (08:39→17:21)
[2024-01-28] MEDS: Sertraline 100 MG Tablet PO (09:42)
[2024-01-28] MEDS: Ceftriaxone 1 GM/50 ML BAG IV (09:43)
[2024-01-28] MEDS: Senna/Docusate Sodium 1 Tablet 2 TABLET PO (12:12)
[2024-01-28 13:06] LABS: Bedside Glucose 285 mg/dL (74-106)
--- NOTE | 2024-01-28 15:23 | CASEMGMT ---
Discharge Planning Referral sent to [facility] via [facility]. Lori Dubon DC Planning Asst.
[2024-01-28 17:46] LABS: Bedside Glucose 205 mg/dL (74-106)
[2024-01-28] MEDS: MELATONIN 10 MG TABLET PO (21:50)
[2024-01-28] MEDS: Midodrine HCl 5 MG Tablet 10 MG PO (21:50)
[2024-01-28] MEDS: Mirtazapine 15 MG Tablet PO (21:51)
[2024-01-29 00:13] LABS: Bedside Glucose 211 mg/dL (74-106)
[2024-01-29 05:30] VITALS: BP 133/99; PULSE 115; RESP 18; TEMP 36.4; O2SAT 96
[2024-01-29] MEDS: Acetaminophen 500 MG Tablet 1000 MG PO (05:40)
[2024-01-29] MEDS: CARBIDOPA/LEVODOPA 1 EACH TABLET.ER PO ×2 (05:41→11:28)
[2024-01-29] MEDS: Menthol/Lanolin/Calamine/Znox 113 GM Tube 1 APPLIC TOPICAL (05:41)
[2024-01-29] MEDS: Carbidopa/Levodopa 25/100 Tablet PO ×4 (05:42→13:40)
[2024-01-29] MEDS: levoFLOXacin 500 MG Tablet PO (05:43)
[2024-01-29 05:47] VITALS: BMI 30.7
[2024-01-29] MEDS: Heparin Injection (Vial) 5,000 UNIT/ML VIAL 5000 UNIT SC (05:54)
[2024-01-29 07:00] VITALS: PULSE 100
[2024-01-29 07:21] LABS: Absolute Neutrophil Count 5.9 X10^3/uL (2.0-7.7); Basophil# 0.04 X10^3/uL; Basophil% 0.5 % (0-1); Eosinophil# 0.29 X10^3/uL; Eosinophils% 3.5 % (0-5); Hematocrit 34.1 % (37-47); Hemoglobin 11.2 g/dL (12.0-15.0); Lymphocyte % 15.7 % (19-41); Mean Corp Hgb Conc 32.8 g/dL (32-36); Mean Corpuscular Hgb 34.3 pg (27.0-32.0); Mean Corpuscular Volume 104.3 fL (81-99); Mean Platelet Vol. 10.1 fl (6.2-12.0); Monocyte# 0.53 X10^3/uL; Monocyte% 6.4 % (0-10); NRBC Flagged by Analyzer 0.4 % (0-5); Neutrophil # 5.92 X10^3/uL (2.7-7.7); Neutrophil % 71.6 % (47-70); Platelet Count 335 K/mm3 (150-450); RBC Distribution Width CV 12.9 % (11.6-14.6); RBC Distribution Width SD 49.5 fl (35.1-43.9); Red Blood Count 3.27 M/mm3 (4.2-5.4); White Blood Count 8.3 K/mm3 (4.4-11.0)
--- NOTE | 2024-01-29 07:47 | CASEMGMT ---
[facility] accepted patient. SW will notify patient and physician. Haily Balelsteros MSW CLARA
--- NOTE | 2024-01-29 07:53 | PCM.PN.HOSP ---
Reason for Visit Reason for Visit: Diagnoses Sepsis, unspecified organism (01/24/24) Elevated white blood cell count, unspecified (01/24/24) Hypo-osmolality and hyponatremia (01/24/24) Acidosis, unspecified (01/24/24) Hypokalemia (01/24/24) Hypotension, unspecified (01/24/24) Hypoxemia (01/24/24) Syncope and collapse (01/24/24) Severe sepsis with septic shock (01/24/24) Other specified abnormal findings of blood chemistry (01/24/24) Unspecified abnormal findings in urine (01/24/24) Subjective Subjective Patient seen complains of being down. Plan is for patient to be discharged to half-way facility Objective Data Objective Data Vital Signs: Vital Signs Temp Pulse Resp BP Pulse Ox O2 Del Method O2 Flow Rate 97.6 F L 100 18 133/99 H 96 Nasal Cannula 2 01/29/24 05:30 01/29/24 07:00 01/29/24 05:30 01/29/24 05:30 01/29/24 05:30 01/29/24 05:38 01/29/24 05:38 Oxygen Flow Rate (L/min) 2 Oxygen Delivery Method Nasal Cannula Weight: 91.7 kg Body Mass Index (BMI) 30.7 Intake & Output: Intake and Output for Last 24 Hours 01/27/24 01/28/24 01/29/24 23:59 23:59 23:59 Intake Total 770 / 770 890 / 890 120 / 120 Output Total 800 / 800 1300 / 1300 250 / 250 Balance -30 / -30 -410 / -410 -130 / -130 Lab / Micro Data 01/29/24 06:08 01/29/24 06:08 Labs: Laboratory Results - last 24 hr 01/28/24 12:15: POC Glucose 285 H 01/28/24 17:20: POC Glucose 205 H 01/28/24 21:47: POC Glucose 211 H 01/29/24 06:08: WBC 8.3, RBC 3.27 L, Hgb 11.2 L, Hct 34.1 L, MCV 104.3 H, MCH 34.3 H, MCHC 32.8, RDW Std Deviation 49.5 H, RDW Coeff of Monica 12.9, Plt Count 335, MPV 10.1, Immature Gran % (Auto) 2.300 H, Neut % (Auto) 71.6 H, Lymph % (Auto) 15.7 L, [place] % (Auto) 6.4, Eos % (Auto) 3.5, Baso % (Auto) 0.5, Absolute Neuts (auto) 5.9, Absolute Lymphs (auto) 1.30, Nucleated RBC % 0.4 Micro: Microbiology 01/24/24 17:45 Blood Culture (Wb) - Anticubital Right Blood Culture - Preliminary No growth in 48 hours. 01/26/24 12:15 Stool C. difficile GDH Antigen & Toxins - Final 01/26/24 12:15 Stool Clostridioides difficile (PCR) - Final 01/24/24 15:58 Urine Catheter - Catheter Urine Culture - Final Klebsiella pneumoniae sp pneum Escherichia coli 01/24/24 15:36 Mucosa - Nose SARS-CoV-2, Influenza & RSV (PCR) - Final Rhythm Strip Rhythm Strip: Sinus Rhythm Rate: 95 Ectopy: None Physical Exam Narrative GENERAL: cooperative HEENT: Atraumatic; normocephalic EYES; Anicteric, Normal Conjunctiva NECK; supple, normal thyroid, RESPIRATORY: Diminished to auscultation CARDIOVASCULAR: Regular S1 S2, GI: soft, normoactive bowel sounds, : No Renal angle tenderness; EXTREMITIES: No edema, no clubbing, MUSCULOSKELETAL: no muscle wasting NEURO: Awake; no lateralizing signs. SKIN: No Rash PSYCH; Flat affect Assessment & Plan Assessment/Plan (1) Hypoxia: (2) Sepsis: PLAN: Plan Patient is an 78-year-old lady admitted following a syncopal episode. An assessment of septic shock secondary to acute cystitis made admitted to the intensive care unit where patient has since been managed 1. Septic shock suspect 2/2 Klebsiella and E. coli UTI ? Patient was treated per protocol with IV fluid resuscitation, broad-spectrum antibiotic therapy and pressors. Patient has since been weaned off pressors. Patient cultures came back positive for E. coli and Klebsiella sensitivities reviewed patient is on appropriate antibiotic therapy -Switched antibiotics from IV to p.o. 2. Acute kidney injury ? Potentially secondary to ATN from sepsis resolved 3. Anemia ? Secondary to chronic disorder monitoring H&H and transfuse if patient becomes symptomatic or hemoglobin falls below 7 4. Hypokalemia -Corrected per protocol 5. Hypomagnesemia -Corrected for protocol 6. Hypotension Secondary to septic shock patient blood pressure continues to improve patient is on midodrine 7. Essential hypertension ? Patient antihypertensive on hold given her relatively low blood pressure 8. Diabetes mellitus type II -patient's oral hypoglycemics held. Placed on long acting insulin, Accu-Cheks a.c. and at bedtime and covered with sliding scale insulin 9. Hyponatremia Secondary to hypovolemic hyponatremia resuscitated with IV fluids resolved 10. Parkinson's disease with significant debility ? Patient is on wheelchair-bound patient is on Sinemet did continue 11. Physical deconditioning ? Requested for PT OT eval and hospice social worker to assist with discharge planning 12. Depression ? Patient is on sertraline. Patient is also on Remeron at night 13. DVT prophylaxis ? SC heparin Time spent in the patient's overall evaluation,decision-making process, review of diagnostic data, adjustment of management, discussion with other providers, nursing nursing and ancillary staff involved in patient's care documentation, 40 minutes
[2024-01-29 08:09] LABS: Anion Gap 6 (5-15); BUN 16 mg/dL (7-18); BUN/Creat Ratio 33.7 RATIO (10-20); Calcium,Total 8.6 mg/dL (8.5-10.1); Chloride 102 mmol/L (98-107); Creatinine, Serum 0.48 mg/dL (0.55-1.02); EST Glomerular Filtration Rate 134 mL/min (>60); Est Glom Filt Rate - Afr Amer 162 mL/min (>60); Glucose 227 mg/dL (74-106); Potassium 3.8 mmol/L (3.5-5.1); Sodium Level 136 mmol/L (136-145)
[2024-01-29 08:44] VITALS: BP 101/65; PULSE 111; RESP 16; TEMP 36.6; O2SAT 97
[2024-01-29] MEDS: Insulin Lispro 100 UNIT/ML INSULN.PEN SC ×2 (08:51→11:28)
[2024-01-29] MEDS: Sertraline 100 MG Tablet PO (08:53)
[2024-01-29 09:20] LABS: Bedside Glucose 240 mg/dL (74-106)
--- NOTE | 2024-01-29 09:36 | PCM.TXEXTCAR ---
Diet Diet Order/Speech Therapy: 01/24/24 18:50 Diet: Carbohydrate Controlled Diet Comments: cut food into smal pieces; sauce/gravy/broth w/ meats; send soup spoon tid Routine Orders/Code Status Code Status: Full Code Wound(s) Elvia Cleft: Wound Type: Skin Tear Between Labia: Wound Type: Skin Tear Therapies Physical Therapy: Eval and Treat Occupational Therapy: Eval and Treat Problem/Diagnosis (1) Hypoxia: Status: Acute Code(s): R09.02 - Hypoxemia (2) Sepsis: Status: Acute Code(s): A41.9 - Sepsis, unspecified organism Plan Patient is an 78-year-old lady admitted following a syncopal episode. An assessment of septic shock secondary to acute cystitis made admitted to the intensive care unit where patient has since been managed 1. Septic shock suspect 2/2 Klebsiella and E. coli UTI ? Patient was treated per protocol with IV fluid resuscitation, broad-spectrum antibiotic therapy and pressors. Patient has since been weaned off pressors. Patient cultures came back positive for E. coli and Klebsiella sensitivities reviewed patient is on appropriate antibiotic therapy -Switched antibiotics from IV to p.o. 2. Acute kidney injury ? Potentially secondary to ATN from sepsis resolved 3. Anemia ? Secondary to chronic disorder monitoring H&H and transfuse if patient becomes symptomatic or hemoglobin falls below 7 4. Hypokalemia -Corrected per protocol 5. Hypomagnesemia -Corrected for protocol 6. Hypotension Secondary to septic shock patient blood pressure continues to improve patient is on midodrine 7. Essential hypertension ? Patient antihypertensive on hold given her relatively low blood pressure 8. Diabetes mellitus type II -patient's oral hypoglycemics held. Placed on long acting insulin, Accu-Cheks a.c. and at bedtime and covered with sliding scale insulin 9. Hyponatremia Secondary to hypovolemic hyponatremia resuscitated with IV fluids resolved 10. Parkinson's disease with significant debility ? Patient is on wheelchair-bound patient is on Sinemet did continue 11. Physical deconditioning ? Requested for PT OT eval and social insurance analyst to assist with discharge planning 12. Depression ? Patient is on sertraline. Patient is also on Remeron at night 13. DVT prophylaxis ? SC heparin Time spent in the patient's overall evaluation,decision-making process, review of diagnostic data, adjustment of management, discussion with other providers, nursing nursing and ancillary staff involved in patient's care documentation, 40 minutes Allergies/Procedures Done in Hospital Allergies ampicillin Allergy (Verified 01/24/24 15:09) Hives Penicillins Allergy (Verified 01/24/24 15:09) Hives Type of Care/Length of Stay Estimated LOS: Convalescent Care Less Than 30 days Type of Care Needed: Skilled Rehab Potential: Good Prognosis: Good Additional Orders/Day of Discharge Day of Discharge: 01/29/24 Dietary and Speech Recommendations Dietitian Recommendations/Changes: Continue CHO Control diet as ordered, cut food into bite sized pieces, send sauces/gravy/broth w/ all meals and give soup spoon w/ meals to help w/ self feeding. D/c 120ml glucerna with meals TID d/t dislike and gas. Will monitor weight, as available. Reviewed and approved by Marely Riggs, RD, LD. Discharge Plan Admission Admit Date/Time: 01/24/24 17:25 Attending Provider: Matt Duncan Primary Care Provider: Brian Johnson Consulting Providers: Edith Cornelius; Racquel Hicks Discharge Orders/Prescriptions Prescriptions: New albuterol sulfate 2.5 mg /3 mL (0.083 %) Solution For Nebulization 2.5 mg inhalation Q2H PRN PRN (Reason: SOB &/OR WHEEZING) Qty: 0 0RF sennosides-docusate sodium [Stimulant Laxative Plus] 8.6-50 mg Tablet 2 tab PO BID PRN (Reason: Constipation) Qty: 0 0RF midodrine 5 mg Tablet 10 mg PO QHS Qty: 0 0RF acetaminophen 500 mg Tablet 1,000 mg PO Q8 Qty: 0 0RF levofloxacin 500 mg Tablet 500 mg PO DAILY@0600 Qty: 10 0RF insulin lispro [Humalog KwikPen Insulin] 100 unit/mL Insulin Pen See Protocol subcut TIDAC Qty: 0 0RF Protocol: 4. Sliding Scale Insulin High-Med Dosing Condition: 150-199 mg/dl = 2 units Condition: 200-259 mg/dl = 4 units Condition: 260-324 mg/dl = 6 units Condition: 325-374 mg/dl = 8 units Condition: 375-409 mg/dl = 10 units Condition: 410-449 mg/dl = 11 units Condition: Greater than 449 call physician Protocol Text: Suggested for: - Patients on Total Daily Insulin Dose of 56-80 units - Patient who are known to be insulin resistant or septic HIGH MEDIUM DOSING ALGORITHM melatonin 10 mg Tablet, Sublingual 10 mg PO QHS Qty: 0 0RF Continued carbidopa-levodopa 25-100 mg tablet See Rx Instructions PO .COMPLEX Rx Instructions: TAKE 2.5 TABS AT 6AM, 9AM, AND NOON, 2 TABS AT 1430, 1630, AND 1830, AND 1 TAB AT 2030 orally; mirtazapine 15 mg tablet 15 mg PO QHS metformin 500 mg tablet extended release 24 hr 1,000 mg PO DAILY carbidopa-levodopa 25-100 mg tablet extended release 1 tab PO TID glipizide 5 mg tablet 2.5 mg PO DAILY sertraline 100 mg tablet 100 mg PO DAILY Discontinued carvedilol 6.25 mg tablet 6.25 mg PO BID hydrochlorothiazide 25 mg tablet 25 mg PO DAILY Referrals / Follow Up: Brian Johnson MD [Primary Care Provider] - Within 2 Weeks Disposition Disposition (needs filled in before D/C Order can be placed): Care Home Facility
--- NOTE | 2024-01-29 09:40 | PCM.DC.SUM ---
Providers Date of Admission: 01/24/24 Date of Discharge: 01/29/24 Primary Care Physician: Dr. Brian Johnson MD Consultations 01/24/24 18:50 Consult: Health Care Technician / Pulmonary Medicine Routine Consulting Provider: Intensivists/Pulmonary Med Reason for Consult: sepsis 2/2 UTI EMERGENT Consult: No MD Notified: Yes Date Notified: 01/24/24 Time Notified: 17:26 Method of Notification: Text Reason For Visit: SEPSIS 2/2 UTI Diagnosis Discharge Diagnosis (1) Hypoxia: Status: Acute Code(s): R09.02 - Hypoxemia (2) Sepsis: Status: Acute Code(s): A41.9 - Sepsis, unspecified organism Plan Patient is an 78-year-old lady admitted following a syncopal episode. An assessment of septic shock secondary to acute cystitis made admitted to the intensive care unit where patient has since been managed 1. Septic shock suspect 2/2 Klebsiella and E. coli UTI ? Patient was treated per protocol with IV fluid resuscitation, broad-spectrum antibiotic therapy and pressors. Patient has since been weaned off pressors. Patient cultures came back positive for E. coli and Klebsiella sensitivities reviewed patient is on appropriate antibiotic therapy -Switched antibiotics from IV to p.o. 2. Acute kidney injury ? Potentially secondary to ATN from sepsis resolved 3. Anemia ? Secondary to chronic disorder monitoring H&H and transfuse if patient becomes symptomatic or hemoglobin falls below 7 4. Hypokalemia -Corrected per protocol 5. Hypomagnesemia -Corrected for protocol 6. Hypotension Secondary to septic shock patient blood pressure continues to improve patient is on midodrine 7. Essential hypertension ? Patient antihypertensive on hold given her relatively low blood pressure 8. Diabetes mellitus type II -patient's oral hypoglycemics held. Placed on long acting insulin, Accu-Cheks a.c. and at bedtime and covered with sliding scale insulin 9. Hyponatremia Secondary to hypovolemic hyponatremia resuscitated with IV fluids resolved 10. Parkinson's disease with significant debility ? Patient is on wheelchair-bound patient is on Sinemet did continue 11. Physical deconditioning ? Requested for PT OT eval and clinical services professional to assist with discharge planning 12. Depression ? Patient is on sertraline. Patient is also on Remeron at night 13. DVT prophylaxis ? SC heparin Time spent in the patient's overall evaluation,decision-making process, review of diagnostic data, adjustment of management, discussion with other providers, nursing nursing and ancillary staff involved in patient's care documentation, 40 minutes Medications at Discharge Home Medications carbidopa 25 mg-levodopa 100 mg tablet See Rx Instructions PO .COMPLEX SHAKINESS 01/24/24 carbidopa ER 25 mg-levodopa 100 mg tablet,extended release 1 tab PO TID SHAKINESS 01/24/24 glipizide 5 mg tablet 2.5 mg PO DAILY BLOOD SUGAR 01/24/24 metformin 500 mg tablet,extended release 24 hr 1,000 mg PO DAILY BLOOD SUGAR 01/24/24 mirtazapine 15 mg tablet 15 mg PO QHS MOOD 01/24/24 sertraline 100 mg tablet 100 mg PO DAILY MOOD 01/24/24 acetaminophen 500 mg tablet 1,000 mg (2 x 500 mg) PO Q8 #0 tabs 01/29/24 albuterol sulfate 2.5 mg/3 mL (0.083 %) solution for nebulization 2.5 mg (3 mL) inhalation Q2H PRN PRN SOB &/OR WHEEZING #0 mL 01/29/24 insulin lispro 100 unit/mL subcutaneous pen (Humalog KwikPen (U-100) Insulin) See Protocol subcut TIDAC #0 mL 01/29/24 levofloxacin 500 mg tablet 500 mg PO DAILY@0600 #10 tabs 01/29/24 melatonin 10 mg sublingual tablet 10 mg PO QHS #0 tabs 01/29/24 midodrine 5 mg tablet 10 mg (2 x 5 mg) PO QHS #0 tabs 01/29/24 sennosides 8.6 mg-docusate sodium 50 mg tablet (Stimulant Laxative Plus) 2 tab PO BID PRN Constipation #0 tabs 01/29/24 Physical Exam Narrative GENERAL: cooperative HEENT: Atraumatic; normocephalic EYES; Anicteric, Normal Conjunctiva NECK; supple, normal thyroid, RESPIRATORY: Diminished to auscultation CARDIOVASCULAR: Regular S1 S2, GI: soft, normoactive bowel sounds, : No Renal angle tenderness; EXTREMITIES: No edema, no clubbing, MUSCULOSKELETAL: no muscle wasting NEURO: Awake; no lateralizing signs. SKIN: No Rash PSYCH; Flat affect Weight / BMI Weight Weight: 91.7 kg Body Mass Index (BMI) 30.7 ABG / Lab / Microbiology Data 01/29/24 06:08 01/29/24 06:08 Laboratory: Laboratory Results - last 24 hr 01/28/24 12:15: POC Glucose 285 H 01/28/24 17:20: POC Glucose 205 H 01/28/24 21:47: POC Glucose 211 H 01/29/24 06:08: WBC 8.3, RBC 3.27 L, Hgb 11.2 L, Hct 34.1 L, MCV 104.3 H, MCH 34.3 H, MCHC 32.8, RDW Std Deviation 49.5 H, RDW Coeff of Monica 12.9, Plt Count 335, MPV 10.1, Immature Gran % (Auto) 2.300 H, Neut % (Auto) 71.6 H, Lymph % (Auto) 15.7 L, App[place] % (Auto) 6.4, Eos % (Auto) 3.5, Baso % (Auto) 0.5, Absolute Neuts (auto) 5.9, Absolute Lymphs (auto) 1.30, Nucleated RBC % 0.4, Sodium 136, Potassium 3.8, Chloride 102, Carbon Dioxide 28.0, Anion Gap 6, BUN 16, Creatinine 0.48 L, Estim Creat Clear Calc 65.20, Est GFR (MDRD) Af Amer 162, Est GFR (MDRD) Non-Af 134, BUN/Creatinine Ratio 33.7 H, Glucose 227 H, Calcium 8.6 01/29/24 08:48: POC Glucose 240 H Microbiology: Microbiology 01/24/24 17:45 Blood Culture (Wb) - Anticubital Right Blood Culture - Preliminary No growth in 48 hours. 01/26/24 12:15 Stool C. difficile GDH Antigen & Toxins - Final 01/26/24 12:15 Stool Clostridioides difficile (PCR) - Final 01/24/24 15:58 Urine Catheter - Catheter Urine Culture - Final Klebsiella pneumoniae sp pneum Escherichia coli 01/24/24 15:36 Mucosa - Nose SARS-CoV-2, Influenza & RSV (PCR) - Final D/C Instructions Discharge Diet: 1800 Calorie Control Diet Discharge Activity: Return to Normal Activity Call your doctor if you observe: Fever of 101 or Higher, Shortness of breath, Fainting spells and Chest pain Meaningful Use Info Meaningful Use Meaningful Use Diagnoses (Choose all that apply): None applicable Ischemic Stroke Statin Dosing Therapy Reference: STATIN DOSE THERAPY REFERENCE: * Patients > 75 years receive moderate or high dose statin therapy. * Patients 75 years or YOUNGER should receive HIGH intensity statin dose unless contraindicated. You will be required to document reason for non-treatment if statin daily dose does not meet guidelines. HIGH DOSE STATIN THERAPY DAILY Atorvastatin > than or = to 40 mg Rosuvastatin > than or = to 20 mg Amlodipine + Atorvastatin > than or = to 2.5/40 mg Ezetimibe + Simvastatin 10/80 mg Simvastatin 80mg Discharge Plan Admission Admit Date/Time: 01/24/24 17:25 Attending Provider: Matt Duncan Primary Care Provider: Brian Johnson Consulting Providers: Edith Cornelius; Racquel Hicks Discharge Orders/Prescriptions Prescriptions: New albuterol sulfate 2.5 mg /3 mL (0.083 %) Solution For Nebulization 2.5 mg inhalation Q2H PRN PRN (Reason: SOB &/OR WHEEZING) Qty: 0 0RF sennosides-docusate sodium [Stimulant Laxative Plus] 8.6-50 mg Tablet 2 tab PO BID PRN (Reason: Constipation) Qty: 0 0RF midodrine 5 mg Tablet 10 mg PO QHS Qty: 0 0RF acetaminophen 500 mg Tablet 1,000 mg PO Q8 Qty: 0 0RF levofloxacin 500 mg Tablet 500 mg PO DAILY@0600 Qty: 10 0RF insulin lispro [Humalog KwikPen Insulin] 100 unit/mL Insulin Pen See Protocol subcut TIDAC Qty: 0 0RF Protocol: 4. Sliding Scale Insulin High-Med Dosing Condition: 150-199 mg/dl = 2 units Condition: 200-259 mg/dl = 4 units Condition: 260-324 mg/dl = 6 units Condition: 325-374 mg/dl = 8 units Condition: 375-409 mg/dl = 10 units Condition: 410-449 mg/dl = 11 units Condition: Greater than 449 call physician Protocol Text: Suggested for: - Patients on Total Daily Insulin Dose of 56-80 units - Patient who are known to be insulin resistant or septic HIGH MEDIUM DOSING ALGORITHM melatonin 10 mg Tablet, Sublingual 10 mg PO QHS Qty: 0 0RF Continued carbidopa-levodopa 25-100 mg tablet See Rx Instructions PO .COMPLEX Rx Instructions: TAKE 2.5 TABS AT 6AM, 9AM, AND NOON, 2 TABS AT 1430, 1630, AND 1830, AND 1 TAB AT 2030 orally; mirtazapine 15 mg tablet 15 mg PO QHS metformin 500 mg tablet extended release 24 hr 1,000 mg PO DAILY carbidopa-levodopa 25-100 mg tablet extended release 1 tab PO TID glipizide 5 mg tablet 2.5 mg PO DAILY sertraline 100 mg tablet 100 mg PO DAILY Discontinued carvedilol 6.25 mg tablet 6.25 mg PO BID hydrochlorothiazide 25 mg tablet 25 mg PO DAILY Referrals / Follow Up: Brian Johnson MD [Primary Care Provider] - Within 2 Weeks Disposition Disposition (needs filled in before D/C Order can be placed): Alf Facility Charges/Coding Visit Charges Inpatient E&M: 11838 Disch Hosp >30min
--- NOTE | 2024-01-29 10:01 | CASEMGMT ---
Patient is ready for discharge to [facility] [facility]. JOSE ROBERTO met with patient, introduced self and role at [facility]. SW explained to patient that [facility] is unable to take her, but [facility] can take her. Patient asked SW to notify her daughter. Patient said she does not have any clothes to wear to [facility]. Patient was very anxious stating she woke up today anxious. SW asked if there was anything SW could do and patient said, If you could wave a magic wand that would be helpful. SW assured patient that SW will take care of getting her to [facility] and her daughter will be aware as well. SW called patient's daughter Adilia. SW explained above. Adilia said she could have her bring in some clothes for patient. SW explained [facility] will set up transport for patient. Adilia asked that someone call her when a time has been arranged. Adilia thanked JOSE ROBERTO for the assistance and notification. JOSE ROBERTO completed a 7000 in [employer] system. Haily Ballesteros [employer]PRESENT[employer]IVE CLARA
--- NOTE | 2024-01-29 10:42 | CASEMGMT ---
Discharge Planning Discharge orders, signed med list, and transport time sent to [facility] via [facility]. Physicians will transport patient by wheelchair at 1p. Nursing, SW, patient, and her son-in-law (David) updated. David will update pts daughter, Adilia. Lori Dubon DC Planning Asst.
[2024-01-29 11:25] VITALS: BP 109/67; PULSE 91; RESP 18; TEMP 36.8; O2SAT 93
--- NOTE | 2024-01-29 11:53 | NURSING ---
Report called to nurse at [facility].
[2024-01-29 11:56] LABS: Bedside Glucose 219 mg/dL (74-106)
== END 2024-01-29 14:05 | disposition skilled nursing facility (03) | DRG 871 ==
LOC: ED 17:35 → ICU 17:59 → PCU 01-27 14:31
PROVIDERS: Internal Medicine; Nurse Practitioner; Admitting Provider Internal Medicine; Emergency Provider Emergency Medicine; PCP Family Medicine; Visit Provider Internal Medicine
DX: A41.59 Other Gram-negative sepsis (principal); R65.21 Severe sepsis with septic shock; N17.0 Acute kidney failure with tubular necrosis; E87.1 Hypo-osmolality and hyponatremia; N30.00 Acute cystitis without hematuria; D63.8 Anemia in other chronic diseases classified elsewhere; E11.65 Type 2 diabetes mellitus with hyperglycemia; G20.A1 Parkinson's disease without dyskinesia, without mention of fluctuations; I10 Essential (primary) hypertension; F32.A Depression, unspecified; E87.6 Hypokalemia; E83.42 Hypomagnesemia; R53.81 Other malaise; R09.02 Hypoxemia; B96.1 Klebsiella pneumoniae [K. pneumoniae] as the cause of diseases classified elsewhere; B96.20 Unspecified Escherichia coli [E. coli] as the cause of diseases classified elsewhere; Z99.3 Dependence on wheelchair; Z79.84 Long term (current) use of oral hypoglycemic drugs; Z79.899 Other long term (current) drug therapy
CPT/HCPCS: 36415; 71045; 74176; 80048; 80053; 81001; 82550; 82607; 82728; 82746; 82962; 83036; 83540; 83550; 83605; 83735; 83880; 84100; 84443; 84484; 85025; 87040; 87077; 87086; 87088; 87186; 87493; 87631; 87641; 93005; 93306; 94668; 97162; 97166; 97530; 97802; 99285; J7030; J7040; J7050; J7120; P9612; A4216; J2405